=== PATIENT | male | born 1955 | race Two or more races ===

== ENCOUNTER 2017-05-19 10:38 | Inpatient (IN) | payer OTHER ==
[2017-05-19 10:46] VITALS: BMI 23.4
--- NOTE | 2017-05-19 13:03 | HP ---
CIWA Score - CIWA Score Nausea/Vomitin-No Nausea/No Vomiting Muscle Tremors: 4-Moderate,w/Arms Extend Anxiety: 4-Mod. Anxious/Guarded Agitation: 5 Paroxysmal Sweats: 1-Minimal Palms Moist Orientation: 0-Oriented Tacttile Disturbances: 0-None Auditory Disturbances: 0-None Visual Disturbances: 0-None Headache: 0-None Present CIWA-Ar Total Score: 14 Admission ROS S - HPI Chief Complaint: ALCOHOL WITHDRAWAL SX Allergies/Adverse Reactions: Allergies Allergy/AdvReac Type Severity Reaction Status Date / Time No Known Allergies Allergy Verified 05/21/17 12:02 History of Present Illness: 61 Y/O H/MALE WITH A HX OF ALCOHOL DEPENDENCE SEEKING DETOX TX. FIRST TIME HERE. PT IS ON [facility]. Exam Limitations: No Limitations, Intoxication - Ebola screening Have you traveled outside of the country in the last 21 days: No Have you had contact with anyone from an Ebola affected area: No Have you been sick,other than usual withdrawal symptoms: No Do you have a fever: No - Review of Systems Constitutional: Chills, Loss of Appetite, Night Sweats, Changes in sleep EENT: reports: Blurred Vision (WEARS GLASSES), Tearing, Hearing Loss (RIGHT EAR) , Tinnitus, Nose Congestion, Dental Problems (UPPER AND LOWER PARTIAL DENTURES.) Respiratory: reports: No Symptoms reported Cardiac: reports: Lightheadedness, Chest Tightness (WHEN INTOXICATED) GI: reports: Constipated, Diarrhea, Nausea, Poor Fluid Intake, Vomiting, Indigestion, Abdominal cramping : reports: Burning, Dysuria, Other (HX BPH BUT NO CURRENT MED) Musculoskeletal: reports: Back Pain, Joint Pain, Muscle Pain Integumentary: reports: Bruising, Erythema, Other (SWELLING BOTH HANDS-LEFT MORE THAN RIGHT HAND. REPORTS HE FELL 3 DAYS AGO BUT DID NOT GO TO THE ER.) Neuro: reports: Headache, Numbness, Tingling, Tremors, Unsteady Gait, Dizziness Endocrine: reports: No Symptoms Reported Hematology: reports: No Symptoms Reported Psychiatric: reports: Orientated x3, Agitated, Anxious, Depressed Other Systems: Reviewed and Negative Patient History - Patient Medical History Hx Anemia: No Hx Asthma: No Hx Chronic Obstructive Pulmonary Disease (COPD): No Hx Cardiac Disorders: No Hx Hypertension: Yes (LISINOPRIL 10 MG DAILY) Hx Hypercholesterolemia: No HX Cerebrovascular Accident: No Hx Seizures: No Hx Diabetes: No Hx Gastrointestinal Disorders: No Hx Genitourinary Disorders: No Hx Sexually Transmitted Disorders: No Hx Renal Disease (ESRD): No Hx Thyroid Disease: No Hx Human Immunodeficiency Virus (HIV): No (NEGATIVE HX) Hx Hepatitis C: No Hx Depression: Yes Hx Suicide Attempt: No (DENIES S/I) Hx Schizophrenia: No - Patient Surgical History Past Surgical History: Yes Hx Neurologic Surgery: No Hx Cataract Extraction: No Hx Cardiac Surgery: No Hx Lung Surgery: Yes (triple bypass sx in 03/2017) Hx Breast Surgery: No Hx Breast Biopsy: No Hx Abdominal Surgery: No Hx Appendectomy: No Hx Cholecystectomy: No Hx Genitourinary Surgery: No Hx Orthopedic Surgery: No Anesthesia Reaction: No - PPD History Previous Implant?: Yes Documented Results: Negative w/o proof Implanted On Prior R Admission?: No PPD to be Administered?: Yes - Reproductive History Patient is a Female of Child Bearing Age (11 -55 yrs old): No (MALE) - Smoking Cessation Smoking history: Current every day smoker Have you smoked in the past 12 months: Yes Aproximately how many cigarettes per day: 10 Hx Chewing Tobacco Use: No Initiated information on smoking cessation: Yes 'Breaking Loose' booklet given: 05/19/17 - Substance & Tx. History Hx Alcohol Use: Yes (VODKA) Hx Substance Use: Yes (HEROIN) Substance Use Type: Alcohol, Heroin Hx Substance Use Treatment: Yes (CURRENTLY IN [facility]) - Substances Abused Heroin Route: Inhalation Frequency: 1-2 times per week Amount used: 3 bags Age of first use: 17 Date of Last Use: 05/19/17 Alcohol-vodka Route: Oral Frequency: Daily Amount used: 2 pts. Age of first use: 17 Date of Last Use: 05/19/17 Family Disease History - Family Disease History Family History: Unable to Obtain Admission Physical Exam BHS - Physical General Appearance: Yes: Moderate Distress, Alcohol on Breath, Intoxicated, Irritable, Anxious, Other (RESTLESSNESS AND AGITATIONS. INCONTINENT OF URINE SEEN ON CLOTHING.) HEENTM: Yes: EOMI, Normocephalic, JENNIFER, Pharynx Normal Respiratory: Yes: Chest Non-Tender, Lungs Clear, Normal Breath Sounds, No Respiratory Distress Neck: Yes: Supple, Trachea in good position Breast: Yes: Breast Exam Deferred Cardiology: Yes: Regular Rhythm, Regular Rate, S1, S2 Abdominal: Yes: Normal Bowel Sounds, Non Tender, Soft Genitourinary: Yes: Other (N/C) Back: Yes: Within Normal Limits Musculoskeletal: Yes: full range of Motion, Gait Steady Extremities: Yes: Normal Range of Motion, Non-Tender, Swelling (LEFT HAND-- REPORTS FALLING 3 DAYS AGO. WILL SEND PT FOR XRAY LEFT HAND IN A.M TO R/O FX.) Neurological: Yes: engineering design manager II-XII NML intact, Fully Oriented, Alert Integumentary: Yes: Dry, Warm Lymphatic: Yes: Within Normal Limits - Diagnostic (1) Alcohol dependence with uncomplicated withdrawal Current Visit: Yes Status: Acute (2) Swelling of left hand Current Visit: Yes Status: Acute (3) Methadone maintenance therapy patient Current Visit: Yes Status: Chronic Cleared for Admission S - Detox or Rehab [facility] Level of Care: Medically Managed Detox Regimen/Protocol: Librium Urine Drug Screen - Results Drug Screen Negative: No Urine Drug Screen Results: OPI-Opiates, MTD-Methadone
[2017-05-19] MEDS ORDERED: ACETAMINOPHEN 325 MG TABLET (FP) PO PRN (13:19)
[2017-05-19] MEDS ORDERED: LOPERAMIDE HCL 2 MG CAPSULE PO PRN (13:19)
[2017-05-19] MEDS ORDERED: IBUPROFEN 400 MG TABLET (FP) PO PRN (13:19)
[2017-05-19] MEDS ORDERED: NICOTINE POLACRILEX 2 MG GUM BC PRN (13:19)
[2017-05-19] MEDS ORDERED: MAGNESIUM CITRATE 300 ML BOTTLE PO PRN (13:19)
[2017-05-19] MEDS ORDERED: chlordiazePOXIDE HCL 25 MG CAPSULE PO PRN (13:19)
[2017-05-19] MEDS ORDERED: P-EPHED 60MG/TRIPROLIDI 2.5MG TABLET PO PRN (13:19)
[2017-05-19] MEDS ORDERED: MENTHOL/PHENOL 1 EACH UD MM PRN (13:19)
[2017-05-19] MEDS ORDERED: guaiFENesin/D-METHORPHAN HB 10 ML UNIT-DOSE CUPS PO PRN (13:19)
[2017-05-19] MEDS ORDERED: MAGNESIUM HYDROX 2400MG/30ML ORAL SUSPENSION 30 ML CUP PO PRN (13:19)
[2017-05-19] MEDS ORDERED: chlordiazePOXIDE HCL 25 MG CAPSULE PO ONE (14:00)
[2017-05-19] MEDS: NICOTINE 14 MG/24 HOURS TOPICAL PATCH TD SCH (15:01)
--- NOTE | 2017-05-19 15:11 | CONSULT ---
[facility] Psychiatric Consult - Data Date of interview: 05/19/17 Admission source: [facility] Identifying data: First admission to [facility] for this 61 y/o male seeking detox treatment on for alcohol and opioid dependence.Patient is single,a father of one,domiciled,unemployed and supported on SSD benefits. Substance Abuse History: Confirmed by patient in this interview.Details in current [facility] report : Smoking history: Current every day smoker. Have you smoked in the past 12 months: Yes. Aproximately how many cigarettes per day: 10. Hx Chewing Tobacco Use: No. Initiated information on smoking cessation: Yes. - Substance & Tx. History. Hx Alcohol Use: Yes (VODKA). Hx Substance Use : Yes (HEROIN). Substance Use Type: Alcohol, Heroin. Hx Substance Use Treatment: Yes (CURRENTLY IN [facility]). - Substances Abused. Heroin. Route: Inhalation. Frequency: 1-2 times per week. Amount used: 3 bags. Age of first use: 17. Date of Last Use: 05/19/17. Alcohol-vodka. Route: Oral. Frequency: Daily. Amount used: 2 pts. Age of first use: 17. Date of Last Use : 05/19/17 Medical History: Hypertension and recent open heart surgery (triple bypass) at [facility]. Psychiatric History: Patient denies history of psychiatric hospitalizations,OPD care or suicide attempts.Mr Copeland is currently on methadone maintenance (80 mg /day) at [facility]. Physical/Sexual Abuse/Trauma History: No history. Additional Comment: Urine Drug Screen Results: OPI-Opiates, MTD-Methadone.Noted. Mental Status Exam - Mental Status Exam Alert and Oriented to: Time, Place, Person Cognitive Function: Good Patient Appearance: Well Groomed Mood: Nervous, Hopeful Affect: Appropriate, Mood Congruent Patient Behavior: Fatigued, Appropriate, Cooperative Speech Pattern: Clear (bilingual) Voice Loudness: Normal Thought Process: Intact, Goal Oriented Thought Disorder: Not Present Hallucinations: Denies Suicidal Ideation: Denies Homicidal Ideation: Denies Insight/Judgement: Poor Sleep: Poorly, Difficulty falling asleep Appetite: Good Muscle strength/Tone: Normal Gait/Station: Normal Psychiatric Findings - Problem List ([place] 1, 2,3) (1) Alcohol dependence with uncomplicated withdrawal Current Visit: Yes Status: Acute (2) Opioid dependence on agonist therapy Current Visit: Yes Status: Acute (3) Insomnia Current Visit: Yes Status: Acute - Initial Treatment Plan Initial Treatment Plan: Psychoeducation.Sleep hygiene discussed.Detoxification in progress.Ambien 5 mg po hs prn.Patient is made aware of the risk of parasomnias (sleep-walking).Mr Copeland agrees with this careplan.Observation.
[2017-05-19] MEDS: chlordiazePOXIDE HCL 25 MG CAPSULE PO SCH ×2 (16:54→22:04)
[2017-05-19] MEDS ORDERED: MELATONIN 5 MG TABLETS PO PRN (22:00)
[2017-05-19] MEDS: ZOLPIDEM TARTRATE 5 MG TABLET PO PRN (22:04)
[2017-05-19] MEDS: THIAMINE HCL 100 MG TABLET (FP) PO SCH (22:04)
[2017-05-19 23:06] LABS: ALBUMIN 3.1 g/dl (3.4-5.0); ANION GAP 7 (8-16); BLOOD UREA NITROGEN 15 mg/dL (7-18); CALCIUM 8.2 mg/dL (8.5-10.1); CHLORIDE 106 mmol/L (98-107); CO2 28 mmol/L (21-32); CREATININE 0.8 mg/dL (0.7-1.3); GLUCOSE,RANDOM 80 mg/dL (74-106); POTASSIUM 3.7 mmol/L (3.5-5.1); SGOT/AST 32 U/L (15-37); SGPT/ALT 31 U/L (12-78); SODIUM 141 mmol/L (136-145); TOT PROT 6.7 g/dl (6.4-8.2)
[2017-05-19 23:07] LABS: ALK PHOS 111 U/L (45-117)
[2017-05-19 23:10] LABS: URINE APPEARANCE TURBID; URINE BILIRUBIN NEGATIVE (<2.0 mg/dL); URINE COLOR AMBER; URINE GLUCOSE (UA) NEGATIVE (NEGATIVE); URINE KETONE NEGATIVE (NEGATIVE); URINE LEUK ESTERASE NEGATIVE (NEGATIVE); URINE NITRITE NEGATIVE (NEGATIVE); URINE PROTEIN NEGATIVE (NEGATIVE)
[2017-05-19 23:11] LABS: BILIRUBIN,TOTAL < 0.1 mg/dL (0.2-1.0)
[2017-05-19 23:16] LABS: HEMATOCRIT 36.4 % (35.4-49); HEMOGLOBIN 12.4 GM/dL (11.7-16.9); MCH 31.5 pg (25.7-33.7); MEAN CELL VOLUME 92.7 fl (80-96); MEAN PLT VOLUME 8.7 fl (7.5-11.1); PLATELET COUNT 323 K/MM3 (134-434); RBC 3.93 M/mm3 (4.00-5.60); RDW 15.5 % (11.9-15.9); WHITE BLOOD COUNT 6.4 K/mm3 (4.0-10.0)
[2017-05-19 23:29] LABS: SICKLE CELL SCREEN NEGATIVE (NEGATIVE)
[2017-05-20] MEDS: chlordiazePOXIDE HCL 25 MG CAPSULE PO SCH ×4 (04:59→22:15)
[2017-05-20] MEDS: METHADONE HCL 40 MG DISPERSABLE TABLET PO SCH (04:59)
[2017-05-20] MEDS: NICOTINE 14 MG/24 HOURS TOPICAL PATCH TD SCH (10:09)
[2017-05-20] MEDS: LISINOPRIL 10 MG TABLET (FP) PO SCH (10:09)
[2017-05-20] MEDS: PRENATAL VITAMINS W/ FOLIC ACID TABLET (FP) PO SCH (10:09)
--- NOTE | 2017-05-20 10:43 | EKG ---
Test Reason : Blood Pressure : / mmHG Vent. Rate : 068 BPM Atrial Rate : 068 BPM P-R Int : 184 ms QRS Dur : 096 ms QT Int : 456 ms P-R-T Axes : 058 -24 -68 degrees QTc Int : 484 ms NORMAL SINUS RHYTHM PROLONGED QT ABNORMAL ECG NO PREVIOUS ECGS AVAILABLE Confirmed by MD Issac, Hammad ([id number]) on 05/20/2017 10:42:52 AM Referred By: Confirmed By:Hammad Davenport MD
--- NOTE | 2017-05-20 11:59 | PN ---
[facility] CIWA - CIWA Score Nausea/Vomitin-No Nausea/No Vomiting Muscle Tremors: 3 Anxiety: 4-Mod. Anxious/Guarded Agitation: 3 Paroxysmal Sweats: 3 Orientation: 0-Oriented Tacttile Disturbances: 2-Mild Itch/Numbness/Burn Auditory Disturbances: 2-Mild Harshness/Frighten Visual Disturbances: 0-None Headache: 0-None Present CIWA-Ar Total Score: 17 [facility] Progress Note (SOAP) Subjective: Anxious, Constipation, Body Aches, Interrupted Sleep. Patient reports pain in Left hand. Patient reports that he fell on his Left Hand approx. 2 days prior to admission to etox. Objective: PATIENT A & O X 3, OBSERVED AMBULATING ON UNIT. NO ACUTE DISTRESS. SWELLING NOTED IN LEFT HAND. NO ERYTHEMA, WOUNDS OR UNUSUAL DISCHARGE NOTED. 05/20/17 11:56 Vital Signs Temperature 97.1 F L 05/20/17 09:18 Pulse Rate 67 05/20/17 11:00 Respiratory Rate 18 05/20/17 11:00 Blood Pressure 132/79 05/20/17 09:18 O2 Sat by Pulse Oximetry (%) Laboratory Tests 05/19/17 05/19/17 05/19/17 14:00 14:00 15:00 WBC 6.4 RBC 3.93 L Hgb 12.4 Hct 36.4 MCV 92.7 MCH 31.5 MCHC 34.0 RDW 15.5 Plt Count 323 MPV 8.7 Sickle Cell Screen Negative Sodium 141 Potassium 3.7 Chloride 106 Carbon Dioxide 28 Anion Gap 7 L BUN 15 Creatinine 0.8 Creat Clearance w eGFR > 60 Random Glucose 80 Calcium 8.2 L Total Bilirubin < 0.1 L AST 32 ALT 31 Alkaline Phosphatase 111 Total Protein 6.7 Albumin 3.1 L Urine Color Stephie Urine Appearance Turbid Urine pH 5.0 Ur Specific [place] 1.019 Urine Protein Negative Urine Glucose (UA) Negative Urine Ketones Negative Urine Blood Negative Urine Nitrite Negative Urine Bilirubin Negative Urine Urobilinogen 2.0 Ur Leukocyte Esterase Negative LABS NOTED. RPR RESULT PENDING. PATIENT PREVIOUSLY SCHEDULED TO HAVE X-RAY OF LEFT HAND/WRIST, RESULTS PENDING. 05/20/17 11:59 Assessment: 05/20/17 11:58 WITHDRAWAL SYMPTOMS. Plan: CONTINUE DETOX. INCREASE DAILY PO FLUID INTAKE. PRN MOM FOR CONSTIPATION.
[2017-05-20] MEDS ORDERED: NAPROXEN 375 MG TABLET (FP) PO ONE (16:45)
[2017-05-20] MEDS: MAG HYDROX/AL HYDROX/SIMETH 30 ML UNIT-DOSE CUP PO PRN ×2 (17:35→23:57)
[2017-05-20] MEDS: ZOLPIDEM TARTRATE 5 MG TABLET PO PRN (22:15)
[2017-05-20] MEDS: THIAMINE HCL 100 MG TABLET (FP) PO SCH (22:15)
[2017-05-21] MEDS: chlordiazePOXIDE HCL 25 MG CAPSULE PO SCH ×2 (06:30→10:21)
[2017-05-21] MEDS: METHADONE HCL 40 MG DISPERSABLE TABLET PO SCH (06:30)
[2017-05-21 09:34] VITALS: BP 130/83; PULSE 73; TEMP 96.6
[2017-05-21] MEDS: NICOTINE 14 MG/24 HOURS TOPICAL PATCH TD SCH (10:21)
[2017-05-21] MEDS: LISINOPRIL 10 MG TABLET (FP) PO SCH (10:21)
[2017-05-21] MEDS: PRENATAL VITAMINS W/ FOLIC ACID TABLET (FP) PO SCH (10:21)
[2017-05-21] MEDS: NAPROXEN 375 MG TABLET (FP) PO SCH ×2 (10:21→23:09)
--- NOTE | 2017-05-21 10:30 | PN ---
[facility] CIWA - CIWA Score Nausea/Vomitin-No Nausea/No Vomiting Muscle Tremors: None Anxiety: 4-Mod. Anxious/Guarded Agitation: 2 Paroxysmal Sweats: 2 Orientation: 0-Oriented Tacttile Disturbances: 2-Mild Itch/Numbness/Burn Auditory Disturbances: 0-None Visual Disturbances: 3-Moderate Sensitivity Headache: 0-None Present CIWA-Ar Total Score: 13 [facility] Progress Note (SOAP) Subjective: Stomach Cramping, Interrupted Sleep, Anxious, Diarrhea. Patient reporting abdominal pain (generalized, intermittent) X approx. 4 days. See Following Progress Note. Objective: PATIENT A & O X 3, OBSERVED AMBULATING ON UNIT. NO ACUTE DISTRESS. DISCOMFORT NOTED ON PALPATION OF ALL QUADRANTS OF ABDOMEN, BILATERAL BUT MORE SO ON RIGHT SIDE. BOWEL SOUNDS NORMOACTIVE IN ALL FOUR QUADRANTS. 05/21/17 10:27 Vital Signs Temperature 96.6 F L 05/21/17 09:33 Pulse Rate 73 05/21/17 09:33 Respiratory Rate 18 05/21/17 09:33 Blood Pressure 130/83 05/21/17 09:33 O2 Sat by Pulse Oximetry (%) Laboratory Tests 05/19/17 05/19/17 05/19/17 14:00 14:00 14:00 WBC 6.4 RBC 3.93 L Hgb 12.4 Hct 36.4 MCV 92.7 MCH 31.5 MCHC 34.0 RDW 15.5 Plt Count 323 MPV 8.7 Sickle Cell Screen Negative Sodium 141 Potassium 3.7 Chloride 106 Carbon Dioxide 28 Anion Gap 7 L BUN 15 Creatinine 0.8 Creat Clearance w eGFR > 60 Random Glucose 80 Calcium 8.2 L Total Bilirubin < 0.1 L AST 32 ALT 31 Alkaline Phosphatase 111 Total Protein 6.7 Albumin 3.1 L Urine Color Urine Appearance Urine pH Ur Specific [place] Urine Protein Urine Glucose (UA) Urine Ketones Urine Blood Urine Nitrite Urine Bilirubin Urine Urobilinogen Ur Leukocyte Esterase RPR Titer Nonreactive 05/19/17 15:00 WBC RBC Hgb Hct MCV MCH MCHC RDW Plt Count MPV Sickle Cell Screen Sodium Potassium Chloride Carbon Dioxide Anion Gap BUN Creatinine Creat Clearance w eGFR Random Glucose Calcium Total Bilirubin AST ALT Alkaline Phosphatase Total Protein Albumin Urine Color St[place]ie Urine Appearance Turbid Urine pH 5.0 Ur Specific [place] 1.019 Urine Protein Negative Urine Glucose (UA) Negative Urine Ketones Negative Urine Blood Negative Urine Nitrite Negative Urine Bilirubin Negative Urine Urobilinogen 2.0 Ur Leukocyte Esterase Negative RPR Titer LABS NOTED. RESULT OF X-RAY OF LEFT HAND PENDING. 05/21/17 10:30 Assessment: 05/21/17 10:28 WITHDRAWAL SYMPTOMS. Plan: CONTINUE DETOX. PATIENT TO BE SENT TO [facility] ER FOR FURTHER EVALUATION OF ABDOMINAL PAIN. SEE FOLLOWING PROGRESS NOTE.
--- NOTE | 2017-05-21 10:44 | PN ---
[facility] Progress Note Note: Patient reports abdominal pain X approx. 4 days. According to patient, pain is sharp, intermittent, 7/10 on pain scale, and generalized throughout all four quadrants of abdomen, although more severe on right side. Patient reports that he had cardiac surgery approx. 2 month ago and that abdominal discomfort occurred for a few days after that surgery, but then subsided at that time. Generalized tenderness upon palpation of abdomen in all four quadrants noted, more so on right upper and lower quadrants. Bowel Sounds Normoactive in all four quadrants. Patient reports diarrhea, but that bowel movements do not relieve pain when it does occur. Patient denies Chest Pain and N/V. History of Cholecystectomy approx. 2 years ago and Triple Cardiac Bypass approx. 2 months ago. Report given to LUCIANO Donnelly at [facility]. Patient to be taken via ambulance to [facility] for further evaluation. Bonifacio Tavares NP
[2017-05-21] MEDS: chlordiazePOXIDE 5 MG CAPSULE PO SCH ×2 (18:03→23:08)
[2017-05-21] MEDS ORDERED: NITROGLYCERIN SUBLINGUAL 1/150 0.4 MG TAB SL PRN (19:57)
[2017-05-21] MEDS ORDERED: ACETAMINOPHEN 325 MG TABLET (FP) PO PRN (19:58)
[2017-05-21] MEDS ORDERED: PANTOPRAZOLE 40 MG TABLET (FP) PO SCH (20:15)
--- NOTE | 2017-05-21 20:32 | MSN ---
Admitting History and Physical - Admission Chief Complaint: Chest pain History of Present Illness: 61 yr old male s/p triple bypass 2 months prior presents to ED from [facility] ( admitted for alcohol detox) with cc of chest pain of 4 days duration and epigastric pain of 4 days duration. Patient describes chest pain as sub- sternal tightness without radiation. The pain is episodic with each episode lasting about 20 mins. Tightness is exacerbated by exertion although the pain has awakened him at night and is relieved by rest and aspirin. The chest pain is not associated with food intake but is associated with SOB. The patient also describes epigastric pain that is sharp and radiates horizontally across his right and left upper quadrant. Pain is exacerbated by drinking alcohol and is associated with 2/3 days of nausea and diarrhea with small amounts of red blood. Patient also fell two days ago and injured his left wrist. He denies lightheadedness or loss of consciousness with the fall. He complains of pain in the wrist without numbness or loss of sensation. PastMedHx: HTN, alcohol dependence, opioid dependence Surgx: CABG (2 months ago), Pancreatic mass removed (1 year ago), Cholecystectomy Social: last used alcohol 4 days ago; last snorted heroin 4 days ago; smokes 10 cigarettes/day NKDA History Source: Patient Limitations to Obtaining History: No Limitations - Past Medical History Cardiovascular: Yes: HTN - Past Surgical History Past Surgical History: Yes: Bypass, Cholecystectomy Additional Past Surgical History: Pancreatic mass removal - Smoking History Smoking history: Current every day smoker Have you smoked in the past 12 months: Yes Aproximately how many cigarettes per day: 10 - Alcohol/Substance Use Hx Alcohol Use: Yes (VODKA) History of Substance Use: reports: Heroin Home Medications - Allergies Allergies/Adverse Reactions: Allergies Allergy/AdvReac Type Severity Reaction Status Date / Time No Known Allergies Allergy Verified 05/21/17 12:02 - Home Medications Home Medications: Ambulatory Orders Lisinopril [Zestril] 10 mg PO DAILY 05/19/17 Review of Systems - Review of Systems Constitutional: reports: Loss of Appetite Cardiovascular: reports: Chest Pain, Shortness of Breath Respiratory: reports: Cough Genitourinary: reports: Other (Hestinancy) Musculoskeletal: reports: Other (left wrist pain) Physical Examination Vital Signs: Vital Signs Temperature 96.6 F L 05/21/17 09:33 Pulse Rate 73 05/21/17 09:33 Respiratory Rate 18 05/21/17 09:33 Blood Pressure 130/83 05/21/17 09:33 O2 Sat by Pulse Oximetry (%) Findings/Remarks: GENERAL: Well-developed male in no acute distress resting comfortably on the stretcher HEAD: Normocephalic, atraumatic EYES: Conjunctiva clear, no palor or jaundice NECK: Supple, trachea midline CARDIOVASCULAR: Healed sternal scar w/o erythema, No JVD, Normal S1/S2 w/o rubs or gallop LUNGS: Clear to auscultation b/l, no wheezes or rales ABDOMEN:Healed scar below umbilicus, normoactive bowel sounds, soft, epigastric tenderness with deep palpation, no rebound or guarding, no organomeglay, small hernia to left of midline below umbilicus, no suprapubic tenderness EXTREMITIES: Left wrist splinted, 2 + peripheral pulses UE/LE b/l, sensation grossly intact NEURO: Normal speech, ambulates without difficultly Labs: CBC, BMP 05/19/17 14:00 05/19/17 14:00 Imaging - Results Cat Scan: Report Reviewed (Soft tissue stranding in pancreatic tail, Small left inguinal hernia containing fat, Small umbilical hernia containing fat, small b/ l basilar lower lung opacities) EKG: Image Reviewed (Sinus bradycardia with T-wave inversions similar to prior EKG (05/19)) Assessment/Plan 61 yr old male s/p CABG (2 months ago) and history of alcohol and opioid dependence presents from [facility] with 4 days of chest pain and epigastric pain. #Chest pain-Most likely cardiac -Repeat EKG -Troponins Q6H, next at mid-night -At 1400-0.11 -At 1800-0.10 -Sublingual nitro prn, ASA, Statin -Consult cardiology #Epigastric pain- Likely secondary to gastritis; not likely pancreatitis, gastric ulcer -Protonix 40 mg QD #Left wrist pain -Review radiology report -Control pain, morphine -Consult orthopedics #Alcohol dependence/withdrawal -Continue librium protocol started at [facility] -PO thiamine, folate #Opioid dependence -Continue Methadone 80mg #HTN -controlled -Continue lisinopril 10 mg #FEN -Encourage oral intake, cardiac diet #Dispo -Obs telemetry
[2017-05-21] MEDS ORDERED: ATORVASTATIN CA 20 MG TABLET (FP) PO SCH (22:00)
[2017-05-21] MEDS: THIAMINE HCL 100 MG TABLET (FP) PO SCH (23:09)
[2017-05-22] MEDS ORDERED: ASPIRIN COATED 81 MG TABLET.EC PO SCH (10:00)
[2017-05-22] MEDS ORDERED: FOLIC ACID 1 MG TABLET (FP) PO SCH (10:00)
[2017-05-22] MEDS ORDERED: chlordiazePOXIDE HCL 10 MG CAPSULE PO SCH (17:00)
== END 2017-05-21 23:59 | disposition short-term general hospital (02) | DRG 897 ==
LOC: YASAS 10:38 → Y3N 13:23 → UNDOADMIN 13:23 → Y3N 05-20 11:04
PROVIDERS: ADMIT Internal Medicine; ATTEND Internal Medicine
PROC: HZ2ZZZZ Detoxification Services for Substance Abuse Treatment (ICD-10-PCS; principal; 2017-05-19)
DX: F19.230 Other psychoactive substance dependence with withdrawal, uncomplicated (principal); F11.20 Opioid dependence, uncomplicated; F10.230 Alcohol dependence with withdrawal, uncomplicated; F17.210 Nicotine dependence, cigarettes, uncomplicated; G47.00 Insomnia, unspecified; Z95.1 Presence of aortocoronary bypass graft; I10 Essential (primary) hypertension; F32.9 Major depressive disorder, single episode, unspecified; M25.532 Pain in left wrist; M79.89 Other specified soft tissue disorders; R74.8 Abnormal levels of other serum enzymes; Z90.49 Acquired absence of other specified parts of digestive tract
CPT/HCPCS: 36415; 73110-TC-LR-FY; 73130-TC-LR-FY; 80053; 81003; 85027; 85660; 86593; 93005; 93010

== ENCOUNTER 2017-05-23 19:43 | Inpatient (IN) | payer OTHER ==
[2017-05-23 21:43] VITALS: BMI 25.1
--- NOTE | 2017-05-23 22:10 | HP ---
Admission ROS [facility] Chief Complaint: Rehab services Allergies/Adverse Reactions: Allergies Allergy/AdvReac Type Severity Reaction Status Date / Time No Known Allergies Allergy Verified 05/23/17 22:36 History of Present Illness: 61 yo male with hx of alcohol dependence is here for rehab, patient is transferred from [facility] after evaluation for abdominal pain and chest pain - 05/23/17. Patient is link to out patient [email or web address] currently on methadone 80mg, last medicated today. PMHX: HTN, Hep C and treated, anxiety. Denies suicidal / homicidal ideation or suicide attempts. Longest period of sobriety 13 years. Exam Limitations: No Limitations - Ebola screening Have you traveled outside of the country in the last 21 days: No Have you had contact with anyone from an Ebola affected area: No Have you been sick,other than usual withdrawal symptoms: No Do you have a fever: No - Review of Systems Constitutional: Changes in sleep EENT: reports: No Symptoms Reported Respiratory: reports: No Symptoms reported Cardiac: reports: Lightheadedness GI: reports: Abdominal cramping Musculoskeletal: reports: Back Pain Integumentary: reports: Other (hand swelling) Neuro: reports: Weakness Endocrine: reports: No Symptoms Reported Hematology: reports: No Symptoms Reported Psychiatric: reports: Orientated x3, Depressed Other Systems: Reviewed and Negative Patient History - Patient Medical History Hx Anemia: No Hx Asthma: No Hx Chronic Obstructive Pulmonary Disease (COPD): No Hx Cancer: No Hx Cardiac Disorders: No Hx Hypertension: Yes (LISINOPRIL 10 MG DAILY) Hx Hypercholesterolemia: No Hx Pacemaker: No HX Cerebrovascular Accident: No Hx Seizures: No Hx Dementia: No Hx Diabetes: No Hx Gastrointestinal Disorders: No Hx Liver Disease: No Hx Genitourinary Disorders: No Hx Sexually Transmitted Disorders: No Hx Renal Disease (ESRD): No Hx Thyroid Disease: No Hx Human Immunodeficiency Virus (HIV): No (NEGATIVE HX) Hx Hepatitis C: No Hx Depression: Yes Hx Suicide Attempt: No (DENIES S/I) Hx Schizophrenia: No - Patient Surgical History Past Surgical History: Yes Hx Neurologic Surgery: No Hx Cataract Extraction: No Hx Cardiac Surgery: No Hx Lung Surgery: Yes (triple bypass sx in 03/2017) Hx Breast Surgery: No Hx Breast Biopsy: No Hx Abdominal Surgery: No Hx Appendectomy: No Hx Cholecystectomy: Yes Hx Genitourinary Surgery: No Hx Section: No Hx Orthopedic Surgery: No Anesthesia Reaction: No - PPD History Previous Implant?: Yes Documented Results: Negative w/proof Date: 05/21/17 PPD to be Administered?: No - Reproductive History Patient is a Female of Child Bearing Age (11 -55 yrs old): No - Smoking Cessation Smoking history: Current every day smoker Have you smoked in the past 12 months: Yes Aproximately how many cigarettes per day: 10 Hx Chewing Tobacco Use: No Initiated information on smoking cessation: Yes 'Breaking Loose' booklet given: 05/23/17 Family Disease History - Family Disease History Family History: Unable to Obtain Admission Physical Exam BHS - Vital Signs Vital Signs: Vital Signs - 24 hr 05/23/17 21:41 Temperature 97.8 F Pulse Rate 70 Respiratory 18 Rate Blood Pressure 123/81 - Physical General Appearance: Yes: Appropriately Dressed, Anxious HEENTM: Yes: EOMI, Hearing grossly Normal, Normal ENT Inspection, Normocephalic , Normal Voice, JENNIFER, Pharynx Normal, Tm's normal Respiratory: Yes: Chest Non-Tender, Lungs Clear, Normal Breath Sounds, Respiratory Distress Neck: Yes: Within Normal Limits Breast: Yes: Breast Exam Deferred Cardiology: Yes: Regular Rhythm, Regular Rate Abdominal: Yes: Normal Bowel Sounds, Non Tender, Flat, Soft Genitourinary: Yes: Within Normal Limits Back: Yes: Normal Inspection Musculoskeletal: Yes: full range of Motion, Gait Steady, Pelvis Stable, Other ( mild unsteady gait, as per patient he bormally uses a walker to ambulate or cane ) Extremities: Yes: Normal Capillary Refill, Normal Inspection, Normal Range of Motion Neurological: Yes: ground hand II-XII NML intact, Fully Oriented, Alert, Motor Strength 5/5, Depressed Affect Integumentary: Yes: Other (swelling on both hands) Lymphatic: Yes: Within Normal Limits - Diagnostic (1) Alcohol dependence Current Visit: Yes Status: Acute Qualifiers: Substance use status: uncomplicated Qualified Code(s): F10.20 - Alcohol dependence, uncomplicated (2) Use of cane as ambulatory aid Current Visit: Yes Status: Acute (3) Insomnia Current Visit: Yes Status: Acute Qualifiers: Insomnia type: unspecified Qualified Code(s): G47.00 - Insomnia, unspecified (4) Swelling of left hand Current Visit: Yes Status: Acute (5) Methadone maintenance therapy patient Current Visit: Yes Status: Chronic (6) Hypertension Current Visit: Yes Status: Chronic Qualifiers: Hypertension type: essential hypertension Qualified Code(s): I10 - Essential (primary) hypertension BHS Breath Alcohol Content Breath Alcohol Content: 0 Urine Drug Screen - Results Drug Screen Negative: No Urine Drug Screen Results: BZO-Benzodiazepines, MTD-Methadone Inpatient Rehab Admission - Initial Determination Are CD services needed?: Yes Free of communicable disease: Yes - Rehab Admission Criteria Previous failed treatment: Yes Poor recovery environment: Yes Comorbidities: Yes Lacks judgement: Yes Patient is meeting Inpatient Rehab admission criteria:: Yes
[2017-05-23] MEDS ORDERED: P-EPHED 60MG/TRIPROLIDI 2.5MG TABLET PO PRN (22:11)
[2017-05-23] MEDS ORDERED: MAGNESIUM HYDROX 2400MG/30ML ORAL SUSPENSION 30 ML CUP PO PRN (22:11)
[2017-05-23] MEDS ORDERED: ACETAMINOPHEN 325 MG TABLET (FP) PO PRN (22:11)
[2017-05-23] MEDS ORDERED: guaiFENesin/D-METHORPHAN HB 10 ML UNIT-DOSE CUPS PO PRN (22:11)
[2017-05-23] MEDS ORDERED: IBUPROFEN 400 MG TABLET (FP) PO PRN (22:11)
[2017-05-23] MEDS ORDERED: LOPERAMIDE HCL 2 MG CAPSULE PO PRN (22:11)
[2017-05-23] MEDS ORDERED: MAGNESIUM CITRATE 300 ML BOTTLE PO PRN (22:11)
[2017-05-23] MEDS ORDERED: MENTHOL/PHENOL 1 EACH UD MM PRN (22:11)
[2017-05-23] MEDS ORDERED: NICOTINE POLACRILEX 2 MG GUM BUC PRN (22:12)
[2017-05-24] MEDS ORDERED: METHADONE HCL 10 MG TABLET PO SCH (06:00)
[2017-05-24] MEDS: METHADONE HCL 40 MG DISPERSABLE TABLET PO SCH (06:16)
[2017-05-24] MEDS: NICOTINE 14 MG/24 HOURS TOPICAL PATCH TD SCH (10:10)
[2017-05-24] MEDS: LISINOPRIL 10 MG TABLET (FP) PO SCH (10:10)
[2017-05-24] MEDS: PRENATAL VITAMINS W/ FOLIC ACID TABLET (FP) PO SCH (10:10)
[2017-05-24] MEDS: hydrOXYzine PAMOATE 25 MG CAPSULE (FP) PO PRN (21:43)
[2017-05-24] MEDS: MELATONIN 5 MG TABLETS PO PRN (21:43)
[2017-05-24] MEDS: THIAMINE HCL 100 MG TABLET (FP) PO SCH (21:43)
[2017-05-24] MEDS: MAG HYDROX/AL HYDROX/SIMETH 30 ML UNIT-DOSE CUP PO PRN (21:44)
[2017-05-25] MEDS: METHADONE HCL 40 MG DISPERSABLE TABLET PO SCH (06:13)
[2017-05-25] MEDS: LISINOPRIL 10 MG TABLET (FP) PO SCH (09:57)
[2017-05-25] MEDS: PRENATAL VITAMINS W/ FOLIC ACID TABLET (FP) PO SCH (09:57)
[2017-05-25] MEDS: NICOTINE 14 MG/24 HOURS TOPICAL PATCH TD SCH (09:57)
[2017-05-25] MEDS: THIAMINE HCL 100 MG TABLET (FP) PO SCH (21:26)
[2017-05-25] MEDS: MELATONIN 5 MG TABLETS PO PRN (21:26)
[2017-05-25] MEDS: hydrOXYzine PAMOATE 25 MG CAPSULE (FP) PO PRN (21:27)
[2017-05-26] MEDS: METHADONE HCL 40 MG DISPERSABLE TABLET PO SCH (06:27)
--- NOTE | 2017-05-26 07:20 | HP ---
Psychiatrist Admission - Data Date of interview: 05/26/17 Admission source: [place]oreto/Janell(05/19/17-05/21/17) Identifying data: This is the first [facility] admission for this 61 years old single male, father of a 31 years old daughter, unemployed on SSD, living in a senior citizen fpc Medical History: Significant for hypertension, history of treatment for hepatitis C, Gallbladder surgery and recent open heart surgery (triple bypass) at [facility]. Patient is on methadone 80 mg/day. Smokes 10 cigarettes daily Psychiatric History: Patient denies history of previous psychiatric treatment Physical/Sexual Abuse/Trauma History: Denies history of emotional, physical or sexual abuse as well as DV relationship Additional Comment: Patient was previously admitted to detox on 05/19/17 and transferred to [facility] for evaluation of chest and abdominal pain. Reports history of 4-5 previous misdemeanor arrests over 10 years ago Vital Signs: Vital Signs - 24 hr 05/25/17 05/26/17 05/26/17 10:00 00:30 03:30 Pulse Rate 84 Respiratory 18 Rate Blood Pressure 109/61 Allergies/Adverse Reactions: Allergies Allergy/AdvReac Type Severity Reaction Status Date / Time No Known Allergies Allergy Verified 05/23/17 22:36 Date of last physical exam: 05/23/17 Concur with the findings of this exam: Yes - Substance Abuse/Tx History Hx Alcohol Use: Yes Hx Substance Use: Yes Substance Use Type: Alcohol (Started drinking alcohol at age 17, consumes 2 pints of vodka daily. Last drank on 05/19/17), Heroin (Started using heroin at age 17, consumes 3 bags daily. Last used on 05/19/17. ) Hx Substance Use Treatment: Yes (Currently attends [facility]; one previous recent inpt detox @ [facility]) Mental Status Exam - Mental Status Exam Alert and Oriented to: Time, Place, Person Cognitive Function: Fair Patient Appearance: Well Groomed Mood: Hopeful, Euthymic Affect: Normal Range Patient Behavior: Cooperative Speech Pattern: Clear Voice Loudness: Normal Thought Process: Intact, Goal Oriented Thought Disorder: Not Present Hallucinations: Denies Suicidal Ideation: Denies Homicidal Ideation: Denies Insight/Judgement: Fair Sleep: Poorly Appetite: Fair Muscle strength/Tone: Normal Gait/Station: Normal Psychiatric Findings - Problem List (Criders 1, 2,3) (1) Substance-induced sleep disorder Current Visit: Yes Status: Acute (2) Alcohol dependence Current Visit: Yes Status: Acute Qualifiers: Substance use status: uncomplicated Qualified Code(s): F10.20 - Alcohol dependence, uncomplicated (3) Opioid dependence on agonist therapy Current Visit: No Status: Chronic (4) Nicotine dependence Current Visit: Yes Status: Chronic (5) Hypertension Current Visit: Yes Status: Chronic Qualifiers: Hypertension type: essential hypertension Qualified Code(s): I10 - Essential (primary) hypertension (6) S/P triple vessel bypass Current Visit: Yes Status: Chronic - Initial Treatment Plan Initial Treatment Plan: 1) Start Belsomra 10 mg po HS prn for insomnia. 2) Monitor progress
[2017-05-26] MEDS: NICOTINE 14 MG/24 HOURS TOPICAL PATCH TD SCH (10:14)
[2017-05-26] MEDS: LISINOPRIL 10 MG TABLET (FP) PO SCH (10:14)
[2017-05-26] MEDS: PRENATAL VITAMINS W/ FOLIC ACID TABLET (FP) PO SCH (10:14)
[2017-05-26] MEDS: MELATONIN 5 MG TABLETS PO PRN (21:26)
[2017-05-26] MEDS: hydrOXYzine PAMOATE 25 MG CAPSULE (FP) PO PRN (21:26)
[2017-05-26] MEDS: THIAMINE HCL 100 MG TABLET (FP) PO SCH (21:26)
[2017-05-26] MEDS ORDERED: SUVOREXANT 10 MG TABLET PO PRN (22:00)
[2017-05-27] MEDS: METHADONE HCL 40 MG DISPERSABLE TABLET PO SCH (06:20)
[2017-05-27] MEDS: PRENATAL VITAMINS W/ FOLIC ACID TABLET (FP) PO SCH (10:05)
[2017-05-27] MEDS: LISINOPRIL 10 MG TABLET (FP) PO SCH (10:05)
[2017-05-27] MEDS: NICOTINE 14 MG/24 HOURS TOPICAL PATCH TD SCH (10:05)
--- NOTE | 2017-05-27 10:46 | PN ---
Psychiatric Progress Note Vital Signs: Vital Signs Period Temp Pulse Resp BP Sys/Cooper Pulse Ox Last 24 Hr 97.7 F 77 18-18 110/71 Date of Session: 05/27/17 Chief Complaint:: Insomnia HPI: Patient addressing Alcohol Dependence comorbid with Opioid Dependence, Nicotine Dependence and Substance-Induced Slee Disorder ROS: HTN, S/P Triple bypass Current Medications: Active Medications Generic Name Dose Route Start Last Admin Trade Name Freq PRN Reason Stop Dose Admin Acetaminophen 650 mg 05/23/17 22:11 Tylenol - PO Q4H PRN FEVER Al Hydroxide/Mg Hydroxide 30 ml 05/23/17 22:11 05/24/17 21:44 Mylanta Oral Suspension - PO 30 ml Q6H PRN Administration DYSPEPSIA Eucalyptus/Menthol/Phenol/Sorbitol 1 each 05/23/17 22:11 Cepastat Lozenge - MM Q4H PRN SORE THROAT Guaifenesin 10 ml 05/23/17 22:11 Robitussin Dm - PO Q6H PRN COUGH Hydroxyzine Pamoate 25 mg 05/23/17 22:11 05/26/17 21:26 Vistaril - PO 25 mg Q4H PRN Administration AGITATION Ibuprofen 400 mg 05/23/17 22:11 05/25/17 14:31 Motrin - PO 400 mg Q6H PRN Administration Pain level 4-6 Lisinopril 10 mg 05/24/17 10:00 05/27/17 10:05 Prinivil PO 10 mg DAILY ROSA M Administration Loperamide HCl 4 mg 05/23/17 22:11 Imodium - PO Q6H PRN DIARRHEA Magnesium Citrate 300 ml 05/23/17 22:11 Citroma - PO Q48H PRN CONSTIPATION Magnesium Hydroxide 30 ml 05/23/17 22:11 Milk Of Magnesia - PO DAILY PRN CONSTIPATION Melatonin 5 mg 05/23/17 22:00 05/26/17 21:26 Melatonin PO 5 mg HS PRN Administration INSOMNIA Methadone HCl 80 mg 05/24/17 06:00 05/27/17 06:20 Dolophine - PO 80 mg DAILY@0600 ROSA M Administration Nicotine 14 mg 05/24/17 10:00 05/27/17 10:05 Nicoderm Patch - TD 14 mg DAILY ROSA M Administration Nicotine Polacrilex 2 mg 05/23/17 22:12 Nicorette Gum - BUC Q2H PRN NICOTINE REPLACEMENT RX Multivit/Folic Acid/Iron 1 tab 05/24/17 10:00 05/27/17 10:05 Vitamins (Sjr) - PO 1 tab DAILY ROSA M Administration Pseudoephedrine/Triprolidine 1 combo 05/23/17 22:11 Actifed - PO TID PRN NASAL CONGESTION Suvorexant 10 mg 05/26/17 22:00 Belsomra PO 05/29/17 21:59 HS PRN INSOMNIA Thiamine HCl 100 mg 05/24/17 22:00 05/26/17 21:26 Vitamin B1 - PO 100 mg HS ROSA M Administration Medication(s) Change(s): Increase Belsomra dosage to 15 mg po HS prn for insomnia Current Side Effect: No Lab tests ordered: Yes Lab tests reviewed: Yes Provider note:: Patient reports experiencing difficulty to sleep. Told rfp writer that he slept poorly despite taking Belsomra 10 mg at bedtime last night. Requested that medication dosage be increased Total face to face time:: 15 Mental Status Exam - Mental Status Exam Alert and Oriented to: Time, Place, Person Cognitive Function: Fair Patient Appearance: Well Groomed Mood: Hopeful, Euthymic Affect: Appropriate Patient Behavior: Cooperative Speech Pattern: Clear Voice Loudness: Normal Thought Process: Intact, Goal Oriented Thought Disorder: Not Present Hallucinations: Denies Suicidal Ideation: Denies Homicidal Ideation: Denies Insight/Judgement: Fair Sleep: Poorly Appetite: Good Muscle strength/Tone: Normal Gait/Station: Normal Psychiatric Treatment Plan - Problem List (1) Substance-induced sleep disorder Current Visit: Yes (2) Alcohol dependence Current Visit: Yes Qualifiers: Substance use status: uncomplicated Qualified Code(s): F10.20 - Alcohol dependence, uncomplicated (3) Opioid dependence on agonist therapy Current Visit: No (4) Nicotine dependence Current Visit: Yes (5) Hypertension Current Visit: Yes Qualifiers: Hypertension type: essential hypertension Qualified Code(s): I10 - Essential (primary) hypertension (6) S/P triple vessel bypass Current Visit: Yes Initial treatment plan: 1) Discontinue Belsomra as currently ordered. 2) Start Belsomra 15 mg po HS prn for insomnia. 3) Monitor progress
[2017-05-27] MEDS ORDERED: SUVOREXANT 15 MG TABLET PO PRN (22:00)
[2017-05-27] MEDS: THIAMINE HCL 100 MG TABLET (FP) PO SCH (22:33)
[2017-05-28] MEDS: METHADONE HCL 40 MG DISPERSABLE TABLET PO SCH (05:58)
[2017-05-28] MEDS: PRENATAL VITAMINS W/ FOLIC ACID TABLET (FP) PO SCH (10:21)
[2017-05-28] MEDS: LISINOPRIL 10 MG TABLET (FP) PO SCH (10:21)
[2017-05-28] MEDS: NICOTINE 14 MG/24 HOURS TOPICAL PATCH TD SCH (10:21)
--- NOTE | 2017-05-28 14:56 | PN ---
Psychiatric Progress Note Vital Signs: Vital Signs Period Temp Pulse Resp BP Sys/Cooper Pulse Ox Last 24 Hr 97.9 F 76-78 18-20 102-108/65-81 Date of Session: 05/28/17 Chief Complaint:: Insomnia HPI: Patient addressing Alcohol Dependence comorbid with Opioid Dependence, Nicotine Dependence and Substance-Induced Slee Disorder ROS: HTN, S/P Triple bypass Current Medications: Active Medications Generic Name Dose Route Start Last Admin Trade Name Freq PRN Reason Stop Dose Admin Acetaminophen 650 mg 05/23/17 22:11 Tylenol - PO Q4H PRN FEVER Al Hydroxide/Mg Hydroxide 30 ml 05/23/17 22:11 05/24/17 21:44 Mylanta Oral Suspension - PO 30 ml Q6H PRN Administration DYSPEPSIA Eucalyptus/Menthol/Phenol/Sorbitol 1 each 05/23/17 22:11 Cepastat Lozenge - MM Q4H PRN SORE THROAT Guaifenesin 10 ml 05/23/17 22:11 Robitussin Dm - PO Q6H PRN COUGH Hydroxyzine Pamoate 25 mg 05/23/17 22:11 05/26/17 21:26 Vistaril - PO 25 mg Q4H PRN Administration AGITATION Ibuprofen 400 mg 05/23/17 22:11 05/25/17 14:31 Motrin - PO 400 mg Q6H PRN Administration Pain level 4-6 Lisinopril 10 mg 05/24/17 10:00 05/28/17 10:21 Prinivil PO 10 mg DAILY ROSA M Administration Loperamide HCl 4 mg 05/23/17 22:11 Imodium - PO Q6H PRN DIARRHEA Magnesium Citrate 300 ml 05/23/17 22:11 Citroma - PO Q48H PRN CONSTIPATION Magnesium Hydroxide 30 ml 05/23/17 22:11 05/27/17 21:40 Milk Of Magnesia - PO 30 ml DAILY PRN Administration CONSTIPATION Melatonin 5 mg 05/23/17 22:00 05/26/17 21:26 Melatonin PO 5 mg HS PRN Administration INSOMNIA Methadone HCl 80 mg 05/24/17 06:00 05/28/17 05:58 Dolophine - PO 80 mg DAILY@0600 ROSA M Administration Nicotine 14 mg 05/24/17 10:00 05/28/17 10:21 Nicoderm Patch - TD 14 mg DAILY ROSA M Administration Nicotine Polacrilex 2 mg 05/23/17 22:12 Nicorette Gum - BUC Q2H PRN NICOTINE REPLACEMENT RX Multivit/Folic Acid/Iron 1 tab 05/24/17 10:00 05/28/17 10:21 Vitamins (Sjr) - PO 1 tab DAILY ROSA M Administration Pseudoephedrine/Triprolidine 1 combo 05/23/17 22:11 Actifed - PO TID PRN NASAL CONGESTION Suvorexant 20 mg 05/28/17 22:00 Belsomra PO HS PRN INSOMNIA Thiamine HCl 100 mg 05/24/17 22:00 05/27/17 22:33 Vitamin B1 - PO 100 mg HS ROSA M Administration Medication(s) Change(s): Increase Belsomra dosage to 20 mg po HS prn for insomnia Current Side Effect: No Lab tests ordered: Yes Lab tests reviewed: Yes Provider note:: Patient reports experiencing difficulty to sleep. Told marketing underwriter that he cotinue to sleep poorly despite taking Belsomra 15 mg at bedtime last night. Requested that medication dosage be increased Total face to face time:: 15 Mental Status Exam - Mental Status Exam Alert and Oriented to: Time, Place, Person Cognitive Function: Fair Patient Appearance: Well Groomed Mood: Hopeful, Euthymic Affect: Appropriate Patient Behavior: Cooperative Speech Pattern: Clear Voice Loudness: Normal Thought Process: Intact, Goal Oriented Thought Disorder: Not Present Hallucinations: Denies Suicidal Ideation: Denies Homicidal Ideation: Denies Insight/Judgement: Fair Sleep: Poorly Appetite: Good Muscle strength/Tone: Normal Gait/Station: Normal Psychiatric Treatment Plan - Problem List (1) Substance-induced sleep disorder Current Visit: Yes (2) Alcohol dependence Current Visit: Yes Qualifiers: Substance use status: uncomplicated Qualified Code(s): F10.20 - Alcohol dependence, uncomplicated (3) Opioid dependence on agonist therapy Current Visit: No (4) Nicotine dependence Current Visit: Yes (5) Hypertension Current Visit: Yes Qualifiers: Hypertension type: essential hypertension Qualified Code(s): I10 - Essential (primary) hypertension (6) S/P triple vessel bypass Current Visit: Yes Initial treatment plan: 1) Discontinue Belsomra as currently ordered. 2) Start Belsomra 20 mg po HS prn for insomnia. 3) Monitor progress
[2017-05-28] MEDS: MAG HYDROX/AL HYDROX/SIMETH 30 ML UNIT-DOSE CUP PO PRN (21:30)
[2017-05-28] MEDS: SUVOREXANT 10 MG TABLET PO PRN (21:30)
[2017-05-28] MEDS: THIAMINE HCL 100 MG TABLET (FP) PO SCH (21:30)
[2017-05-29] MEDS: METHADONE HCL 40 MG DISPERSABLE TABLET PO SCH (06:18)
[2017-05-29] MEDS: MAG HYDROX/AL HYDROX/SIMETH 30 ML UNIT-DOSE CUP PO PRN ×2 (06:19→21:52)
[2017-05-29] MEDS ORDERED: METHADONE HCL 40 MG DISPERSABLE TABLET PO SCH (07:23)
[2017-05-29] MEDS: NICOTINE 14 MG/24 HOURS TOPICAL PATCH TD SCH (10:18)
[2017-05-29] MEDS: PRENATAL VITAMINS W/ FOLIC ACID TABLET (FP) PO SCH (10:18)
[2017-05-29] MEDS: LISINOPRIL 10 MG TABLET (FP) PO SCH (10:18)
--- NOTE | 2017-05-29 14:19 | PN ---
[facility] Progress Note Note: Patient reported to the RN that while he was taking a shower last evening around 9:30, he hit his left elbow agaist the grab bar. Patient denies falling during the incident. Reports pain 5/10 on the left elbow. Patient denies SOB, chest pain, paresthesia or vertigo. Vital Signs Temperature 97.8 F 05/29/17 06:49 Pulse Rate 77 05/29/17 09:25 Respiratory Rate 18 05/29/17 06:49 Blood Pressure 104/69 05/29/17 09:25 O2 Sat by Pulse Oximetry (%) Patient AOx3, in no apparent distress Lungs clear bilateral, no adventitious breath sounds Nomal HR and rhythm BS x4 , no tenderness Full ROM on all extremities, + swelling on the left elbow Skin warm and intact Plan: Cold compress to the area Ibuprofen 600mg PRN x-ray left elbow Continue to monitor
[2017-05-29] MEDS: THIAMINE HCL 100 MG TABLET (FP) PO SCH (21:52)
[2017-05-29] MEDS: SUVOREXANT 10 MG TABLET PO PRN (21:53)
[2017-05-30] MEDS: METHADONE HCL 40 MG DISPERSABLE TABLET PO SCH (06:07)
[2017-05-30] MEDS ORDERED: METHADONE HCL 40 MG DISPERSABLE TABLET PO SCH (07:23)
[2017-05-30] MEDS: IBUPROFEN 600 MG TABLET (FP) PO PRN (10:22)
[2017-05-30] MEDS: LISINOPRIL 10 MG TABLET (FP) PO SCH (10:22)
[2017-05-30] MEDS: PRENATAL VITAMINS W/ FOLIC ACID TABLET (FP) PO SCH (10:22)
[2017-05-30] MEDS: NICOTINE 14 MG/24 HOURS TOPICAL PATCH TD SCH (10:23)
--- NOTE | 2017-05-30 11:18 | PN ---
Psychiatric Progress Note Vital Signs: Vital Signs Period Temp Pulse Resp BP Sys/Cooper Pulse Ox Last 24 Hr 97.9 F 68-70 - 107-111/66-73 Date of Session: 05/30/17 Chief Complaint:: Insomnia HPI: Patient addressing Alcohol Dependence comorbid with Opioid Dependence, Nicotine Dependence and Substance-Induced Sleep Disorder ROS: HTN, S/P Triple bypass Current Medications: Active Medications Generic Name Dose Route Start Last Admin Trade Name Freq PRN Reason Stop Dose Admin Acetaminophen 650 mg 05/23/17 22:11 Tylenol - PO Q4H PRN FEVER Al Hydroxide/Mg Hydroxide 30 ml 05/23/17 22:11 05/29/17 21:52 Mylanta Oral Suspension - PO 30 ml Q6H PRN Administration DYSPEPSIA Eucalyptus/Menthol/Phenol/Sorbitol 1 each 05/23/17 22:11 Cepastat Lozenge - MM Q4H PRN SORE THROAT Guaifenesin 10 ml 05/23/17 22:11 Robitussin Dm - PO Q6H PRN COUGH Hydroxyzine Pamoate 25 mg 05/23/17 22:11 05/26/17 21:26 Vistaril - PO 25 mg Q4H PRN Administration AGITATION Ibuprofen 600 mg 05/29/17 14:02 05/30/17 10:22 Motrin - PO 600 mg Q6H PRN Administration Pain level 4-6 Lisinopril 10 mg 05/24/17 10:00 05/30/17 10:22 Prinivil PO 10 mg DAILY ROSA M Administration Loperamide HCl 4 mg 05/23/17 22:11 Imodium - PO Q6H PRN DIARRHEA Magnesium Citrate 300 ml 05/23/17 22:11 Citroma - PO Q48H PRN CONSTIPATION Magnesium Hydroxide 30 ml 05/23/17 22:11 05/27/17 21:40 Milk Of Magnesia - PO 30 ml DAILY PRN Administration CONSTIPATION Melatonin 5 mg 05/23/17 22:00 05/26/17 21:26 Melatonin PO 5 mg HS PRN Administration INSOMNIA Methadone HCl 80 mg 05/30/17 06:00 05/30/17 06:07 Dolophine - PO 06/05/17 05:59 80 mg DAILY@0600 ROSA M Administration Nicotine 14 mg 05/24/17 10:00 05/30/17 10:23 Nicoderm Patch - TD 14 mg DAILY ROSA M Administration Nicotine Polacrilex 2 mg 05/23/17 22:12 Nicorette Gum - BUC Q2H PRN NICOTINE REPLACEMENT RX Multivit/Folic Acid/Iron 1 tab 05/24/17 10:00 05/30/17 10:22 Vitamins (Sjr) - PO 1 tab DAILY ROSA M Administration Pseudoephedrine/Triprolidine 1 combo 05/23/17 22:11 Actifed - PO TID PRN NASAL CONGESTION Suvorexant 20 mg 05/28/17 22:00 05/29/17 21:53 Belsomra PO 05/31/17 21:59 20 mg HS PRN Administration INSOMNIA Thiamine HCl 100 mg 05/24/17 22:00 05/29/17 21:52 Vitamin B1 - PO 100 mg HS ROSA M Administration Trazodone HCl 100 mg 05/30/17 22:00 Desyrel - PO HS ROSA M Current Side Effect: No Lab tests ordered: Yes Lab tests reviewed: Yes Provider note:: Patient reports still experiencing difficulty to sleep despite taking Belsomra 20 mg at bedtime for last 2 nights. Hypnotic properties as well as adverse-effects including priapism of Trazadone discussed with patient and he agreeed to try it Total face to face time:: 15 Mental Status Exam - Mental Status Exam Alert and Oriented to: Time, Place, Person Cognitive Function: Fair Patient Appearance: Well Groomed Mood: Hopeful, Euthymic Affect: Appropriate Patient Behavior: Cooperative Speech Pattern: Clear Voice Loudness: Normal Thought Process: Intact Thought Disorder: Ideas of Reference Hallucinations: Denies Suicidal Ideation: Denies Homicidal Ideation: Denies Insight/Judgement: Fair Sleep: Poorly Appetite: Good Muscle strength/Tone: Normal Gait/Station: Normal Psychiatric Treatment Plan - Problem List (1) Substance-induced sleep disorder Current Visit: Yes (2) Alcohol dependence Current Visit: Yes Qualifiers: Substance use status: uncomplicated Qualified Code(s): F10.20 - Alcohol dependence, uncomplicated (3) Opioid dependence on agonist therapy Current Visit: No (4) Nicotine dependence Current Visit: Yes (5) Hypertension Current Visit: Yes Qualifiers: Hypertension type: essential hypertension Qualified Code(s): I10 - Essential (primary) hypertension (6) S/P triple vessel bypass Current Visit: Yes Initial treatment plan: 1) Start Trazadone 100 mg po HS for insomnia. 2) Monitor progress
[2017-05-30] MEDS: traZODone HCL 100 MG TABLET (FP) PO SCH (21:37)
[2017-05-30] MEDS: SUVOREXANT 10 MG TABLET PO PRN (21:37)
[2017-05-30] MEDS: THIAMINE HCL 100 MG TABLET (FP) PO SCH (21:38)
[2017-05-31] MEDS: MAG HYDROX/AL HYDROX/SIMETH 30 ML UNIT-DOSE CUP PO PRN (06:25)
[2017-05-31] MEDS: METHADONE HCL 40 MG DISPERSABLE TABLET PO SCH (06:25)
[2017-05-31] MEDS: LISINOPRIL 10 MG TABLET (FP) PO SCH (09:43)
[2017-05-31] MEDS: NICOTINE 14 MG/24 HOURS TOPICAL PATCH TD SCH (09:43)
[2017-05-31] MEDS: PRENATAL VITAMINS W/ FOLIC ACID TABLET (FP) PO SCH (09:43)
[2017-05-31] MEDS: traZODone HCL 100 MG TABLET (FP) PO SCH (21:44)
[2017-05-31] MEDS: THIAMINE HCL 100 MG TABLET (FP) PO SCH (21:44)
[2017-06-01] MEDS: METHADONE HCL 40 MG DISPERSABLE TABLET PO SCH (06:17)
[2017-06-01] MEDS: NICOTINE 14 MG/24 HOURS TOPICAL PATCH TD SCH (11:50)
[2017-06-01] MEDS: PRENATAL VITAMINS W/ FOLIC ACID TABLET (FP) PO SCH (11:50)
[2017-06-01] MEDS: LISINOPRIL 10 MG TABLET (FP) PO SCH (11:50)
[2017-06-01] MEDS: traZODone HCL 100 MG TABLET (FP) PO SCH (21:56)
[2017-06-01] MEDS: THIAMINE HCL 100 MG TABLET (FP) PO SCH (21:56)
[2017-06-02] MEDS: METHADONE HCL 40 MG DISPERSABLE TABLET PO SCH (05:58)
[2017-06-02] MEDS: LISINOPRIL 10 MG TABLET (FP) PO SCH (10:16)
[2017-06-02] MEDS: PRENATAL VITAMINS W/ FOLIC ACID TABLET (FP) PO SCH (10:16)
[2017-06-02] MEDS: NICOTINE 14 MG/24 HOURS TOPICAL PATCH TD SCH (10:17)
[2017-06-02] MEDS: MAG HYDROX/AL HYDROX/SIMETH 30 ML UNIT-DOSE CUP PO PRN (16:56)
[2017-06-02] MEDS: THIAMINE HCL 100 MG TABLET (FP) PO SCH (21:31)
[2017-06-02] MEDS: SUVOREXANT 10 MG TABLET PO PRN (21:31)
[2017-06-02] MEDS: traZODone HCL 100 MG TABLET (FP) PO SCH (21:32)
[2017-06-03] MEDS: METHADONE HCL 40 MG DISPERSABLE TABLET PO SCH (06:00)
[2017-06-03] MEDS: MAG HYDROX/AL HYDROX/SIMETH 30 ML UNIT-DOSE CUP PO PRN (06:01)
[2017-06-03] MEDS: PRENATAL VITAMINS W/ FOLIC ACID TABLET (FP) PO SCH (10:25)
[2017-06-03] MEDS: NICOTINE 14 MG/24 HOURS TOPICAL PATCH TD SCH (10:25)
[2017-06-03] MEDS: LISINOPRIL 10 MG TABLET (FP) PO SCH (10:25)
[2017-06-03] MEDS: THIAMINE HCL 100 MG TABLET (FP) PO SCH (21:40)
[2017-06-03] MEDS: SUVOREXANT 10 MG TABLET PO PRN (21:40)
[2017-06-03] MEDS: SIMETHICONE 80 MG TAB.CHEW (FP) PO PRN (21:41)
[2017-06-03] MEDS: traZODone HCL 100 MG TABLET (FP) PO SCH (21:41)
[2017-06-04] MEDS: METHADONE HCL 40 MG DISPERSABLE TABLET PO SCH (06:11)
[2017-06-04] MEDS: LISINOPRIL 10 MG TABLET (FP) PO SCH (10:10)
[2017-06-04] MEDS: PRENATAL VITAMINS W/ FOLIC ACID TABLET (FP) PO SCH (10:10)
[2017-06-04] MEDS: NICOTINE 14 MG/24 HOURS TOPICAL PATCH TD SCH (10:10)
[2017-06-04] MEDS: SIMETHICONE 80 MG TAB.CHEW (FP) PO PRN ×2 (10:12→21:41)
[2017-06-04] MEDS: THIAMINE HCL 100 MG TABLET (FP) PO SCH (21:41)
[2017-06-04] MEDS: traZODone HCL 100 MG TABLET (FP) PO SCH (21:41)
[2017-06-04] MEDS: SUVOREXANT 10 MG TABLET PO PRN (21:41)
[2017-06-04] MEDS: MELATONIN 5 MG TABLETS PO PRN (21:42)
[2017-06-04] MEDS: hydrOXYzine PAMOATE 25 MG CAPSULE (FP) PO PRN (21:42)
[2017-06-05] MEDS: METHADONE HCL 40 MG DISPERSABLE TABLET PO SCH (06:19)
[2017-06-05] MEDS: LISINOPRIL 10 MG TABLET (FP) PO SCH (10:12)
[2017-06-05] MEDS: NICOTINE 14 MG/24 HOURS TOPICAL PATCH TD SCH (10:12)
[2017-06-05] MEDS: PRENATAL VITAMINS W/ FOLIC ACID TABLET (FP) PO SCH (10:12)
[2017-06-05] MEDS: SIMETHICONE 80 MG TAB.CHEW (FP) PO PRN ×2 (10:13→21:34)
[2017-06-05] MEDS: THIAMINE HCL 100 MG TABLET (FP) PO SCH (21:33)
[2017-06-05] MEDS: traZODone HCL 100 MG TABLET (FP) PO SCH (21:33)
[2017-06-05] MEDS: hydrOXYzine PAMOATE 25 MG CAPSULE (FP) PO PRN (21:33)
[2017-06-06] MEDS: METHADONE HCL 40 MG DISPERSABLE TABLET PO SCH (06:34)
[2017-06-06] MEDS: PRENATAL VITAMINS W/ FOLIC ACID TABLET (FP) PO SCH (10:12)
[2017-06-06] MEDS: NICOTINE 14 MG/24 HOURS TOPICAL PATCH TD SCH (10:12)
[2017-06-06] MEDS: LISINOPRIL 10 MG TABLET (FP) PO SCH (10:12)
[2017-06-06] MEDS: SIMETHICONE 80 MG TAB.CHEW (FP) PO PRN (10:13)
[2017-06-06] MEDS: hydrOXYzine PAMOATE 25 MG CAPSULE (FP) PO PRN (21:36)
[2017-06-06] MEDS: MELATONIN 5 MG TABLETS PO PRN (21:36)
[2017-06-06] MEDS: traZODone HCL 100 MG TABLET (FP) PO SCH (21:36)
[2017-06-06] MEDS: THIAMINE HCL 100 MG TABLET (FP) PO SCH (21:36)
[2017-06-06] MEDS: SUVOREXANT 10 MG TABLET PO PRN (21:36)
[2017-06-06] MEDS: IBUPROFEN 600 MG TABLET (FP) PO PRN (21:37)
[2017-06-07] MEDS: IBUPROFEN 600 MG TABLET (FP) PO PRN ×2 (06:00→21:32)
[2017-06-07] MEDS: METHADONE HCL 40 MG DISPERSABLE TABLET PO SCH (06:01)
[2017-06-07] MEDS: NICOTINE 14 MG/24 HOURS TOPICAL PATCH TD SCH (10:18)
[2017-06-07] MEDS: PRENATAL VITAMINS W/ FOLIC ACID TABLET (FP) PO SCH (10:18)
[2017-06-07] MEDS: LISINOPRIL 10 MG TABLET (FP) PO SCH (10:19)
[2017-06-07] MEDS: SIMETHICONE 80 MG TAB.CHEW (FP) PO PRN (21:33)
[2017-06-07] MEDS: hydrOXYzine PAMOATE 25 MG CAPSULE (FP) PO PRN (21:33)
[2017-06-07] MEDS: MELATONIN 5 MG TABLETS PO PRN (21:33)
[2017-06-07] MEDS: SUVOREXANT 10 MG TABLET PO PRN (21:33)
[2017-06-07] MEDS: traZODone HCL 100 MG TABLET (FP) PO SCH (21:33)
[2017-06-07] MEDS: THIAMINE HCL 100 MG TABLET (FP) PO SCH (21:34)
[2017-06-08] MEDS: METHADONE HCL 40 MG DISPERSABLE TABLET PO SCH (06:10)
[2017-06-08] MEDS: SIMETHICONE 80 MG TAB.CHEW (FP) PO PRN (10:01)
[2017-06-08] MEDS: PRENATAL VITAMINS W/ FOLIC ACID TABLET (FP) PO SCH (10:01)
[2017-06-08] MEDS: NICOTINE 14 MG/24 HOURS TOPICAL PATCH TD SCH (10:01)
[2017-06-08] MEDS: LISINOPRIL 10 MG TABLET (FP) PO SCH (10:02)
[2017-06-08] MEDS: THIAMINE HCL 100 MG TABLET (FP) PO SCH (21:32)
[2017-06-08] MEDS: MELATONIN 5 MG TABLETS PO PRN (21:32)
[2017-06-08] MEDS: hydrOXYzine PAMOATE 25 MG CAPSULE (FP) PO PRN (21:32)
[2017-06-08] MEDS: SUVOREXANT 10 MG TABLET PO PRN (21:32)
[2017-06-08] MEDS: traZODone HCL 100 MG TABLET (FP) PO SCH (21:32)
[2017-06-08] MEDS: IBUPROFEN 600 MG TABLET (FP) PO PRN (21:32)
[2017-06-09] MEDS: METHADONE HCL 40 MG DISPERSABLE TABLET PO SCH (06:00)
[2017-06-09] MEDS: PRENATAL VITAMINS W/ FOLIC ACID TABLET (FP) PO SCH (10:20)
[2017-06-09] MEDS: NICOTINE 14 MG/24 HOURS TOPICAL PATCH TD SCH (10:20)
[2017-06-09] MEDS: LISINOPRIL 10 MG TABLET (FP) PO SCH (10:20)
[2017-06-09] MEDS: SIMETHICONE 80 MG TAB.CHEW (FP) PO PRN ×2 (10:21→21:27)
[2017-06-09] MEDS: IBUPROFEN 600 MG TABLET (FP) PO PRN (21:27)
[2017-06-09] MEDS: traZODone HCL 100 MG TABLET (FP) PO SCH (21:27)
[2017-06-09] MEDS: SUVOREXANT 10 MG TABLET PO PRN (21:27)
[2017-06-09] MEDS: THIAMINE HCL 100 MG TABLET (FP) PO SCH (21:27)
[2017-06-09] MEDS: hydrOXYzine PAMOATE 25 MG CAPSULE (FP) PO PRN (21:27)
[2017-06-09] MEDS: MELATONIN 5 MG TABLETS PO PRN (21:27)
[2017-06-09] MEDS ORDERED: SUVOREXANT 10 MG TABLET PO PRN (22:00)
[2017-06-10] MEDS: METHADONE HCL 40 MG DISPERSABLE TABLET PO SCH (06:03)
[2017-06-10] MEDS: NICOTINE 14 MG/24 HOURS TOPICAL PATCH TD SCH (10:10)
[2017-06-10] MEDS: PRENATAL VITAMINS W/ FOLIC ACID TABLET (FP) PO SCH (10:10)
[2017-06-10] MEDS: LISINOPRIL 10 MG TABLET (FP) PO SCH (10:11)
[2017-06-10] MEDS: SUVOREXANT 10 MG TABLET PO PRN (21:46)
[2017-06-10] MEDS: traZODone HCL 100 MG TABLET (FP) PO SCH (21:46)
[2017-06-10] MEDS: THIAMINE HCL 100 MG TABLET (FP) PO SCH (21:46)
[2017-06-10] MEDS: LIDOCAINE PATCH REMOVAL MC SCH (21:47)
[2017-06-10] MEDS: IBUPROFEN 600 MG TABLET (FP) PO PRN (21:49)
[2017-06-11] MEDS: METHADONE HCL 40 MG DISPERSABLE TABLET PO SCH (06:26)
[2017-06-11] MEDS: PRENATAL VITAMINS W/ FOLIC ACID TABLET (FP) PO SCH (09:52)
[2017-06-11] MEDS: LIDOCAINE 5% TOPICAL PATCH TP SCH (09:52)
[2017-06-11] MEDS: NICOTINE 14 MG/24 HOURS TOPICAL PATCH TD SCH (09:52)
[2017-06-11] MEDS: LISINOPRIL 10 MG TABLET (FP) PO SCH (09:52)
[2017-06-11] MEDS: hydrOXYzine PAMOATE 25 MG CAPSULE (FP) PO PRN (21:42)
[2017-06-11] MEDS: MELATONIN 5 MG TABLETS PO PRN (21:42)
[2017-06-11] MEDS: traZODone HCL 100 MG TABLET (FP) PO SCH (21:42)
[2017-06-11] MEDS: SIMETHICONE 80 MG TAB.CHEW (FP) PO PRN (21:42)
[2017-06-11] MEDS: SUVOREXANT 10 MG TABLET PO PRN (21:42)
[2017-06-11] MEDS: THIAMINE HCL 100 MG TABLET (FP) PO SCH (21:42)
[2017-06-11] MEDS: IBUPROFEN 600 MG TABLET (FP) PO PRN (21:42)
[2017-06-11] MEDS: LIDOCAINE PATCH REMOVAL MC SCH (21:44)
[2017-06-12] MEDS: METHADONE HCL 40 MG DISPERSABLE TABLET PO SCH (06:23)
[2017-06-12] MEDS: LIDOCAINE 5% TOPICAL PATCH TP SCH (10:41)
[2017-06-12] MEDS: NICOTINE 14 MG/24 HOURS TOPICAL PATCH TD SCH (10:41)
[2017-06-12] MEDS: PRENATAL VITAMINS W/ FOLIC ACID TABLET (FP) PO SCH (10:41)
[2017-06-12] MEDS: LISINOPRIL 10 MG TABLET (FP) PO SCH (10:41)
[2017-06-12] MEDS: SIMETHICONE 80 MG TAB.CHEW (FP) PO PRN (11:20)
[2017-06-12] MEDS: hydrOXYzine PAMOATE 25 MG CAPSULE (FP) PO PRN (21:35)
[2017-06-12] MEDS: THIAMINE HCL 100 MG TABLET (FP) PO SCH (21:35)
[2017-06-12] MEDS: traZODone HCL 100 MG TABLET (FP) PO SCH (21:35)
[2017-06-12] MEDS: IBUPROFEN 600 MG TABLET (FP) PO PRN (21:37)
[2017-06-12] MEDS: SUVOREXANT 10 MG TABLET PO PRN (21:38)
[2017-06-12] MEDS: LIDOCAINE PATCH REMOVAL MC SCH (21:49)
[2017-06-12] MEDS ORDERED: SUVOREXANT 10 MG TABLET PO PRN (22:00)
[2017-06-13] MEDS: METHADONE HCL 40 MG DISPERSABLE TABLET PO SCH (06:01)
[2017-06-13] MEDS: LIDOCAINE 5% TOPICAL PATCH TP SCH (10:35)
[2017-06-13] MEDS: PRENATAL VITAMINS W/ FOLIC ACID TABLET (FP) PO SCH (10:35)
[2017-06-13] MEDS: LISINOPRIL 10 MG TABLET (FP) PO SCH (10:35)
[2017-06-13] MEDS: NICOTINE 14 MG/24 HOURS TOPICAL PATCH TD SCH (10:35)
[2017-06-13] MEDS: MELATONIN 5 MG TABLETS PO PRN (21:48)
[2017-06-13] MEDS: IBUPROFEN 600 MG TABLET (FP) PO PRN (21:48)
[2017-06-13] MEDS: THIAMINE HCL 100 MG TABLET (FP) PO SCH (21:48)
[2017-06-13] MEDS: SUVOREXANT 10 MG TABLET PO PRN (21:50)
[2017-06-13] MEDS: SIMETHICONE 80 MG TAB.CHEW (FP) PO PRN (21:50)
[2017-06-13] MEDS: traZODone HCL 100 MG TABLET (FP) PO SCH (21:51)
[2017-06-13] MEDS: LIDOCAINE PATCH REMOVAL MC SCH (21:51)
[2017-06-13] MEDS: hydrOXYzine PAMOATE 25 MG CAPSULE (FP) PO PRN (21:51)
[2017-06-14] MEDS: METHADONE HCL 40 MG DISPERSABLE TABLET PO SCH (06:25)
[2017-06-14] MEDS: LIDOCAINE 5% TOPICAL PATCH TP SCH (10:24)
[2017-06-14] MEDS: LISINOPRIL 10 MG TABLET (FP) PO SCH (10:24)
[2017-06-14] MEDS: PRENATAL VITAMINS W/ FOLIC ACID TABLET (FP) PO SCH (10:24)
[2017-06-14] MEDS: NICOTINE 14 MG/24 HOURS TOPICAL PATCH TD SCH (10:24)
[2017-06-14] MEDS: SUVOREXANT 10 MG TABLET PO PRN (22:04)
[2017-06-14] MEDS: THIAMINE HCL 100 MG TABLET (FP) PO SCH (22:04)
[2017-06-14] MEDS: hydrOXYzine PAMOATE 25 MG CAPSULE (FP) PO PRN (22:04)
[2017-06-14] MEDS: traZODone HCL 100 MG TABLET (FP) PO SCH (22:04)
[2017-06-14] MEDS: MELATONIN 5 MG TABLETS PO PRN (22:04)
[2017-06-14] MEDS: IBUPROFEN 600 MG TABLET (FP) PO PRN (22:04)
[2017-06-14] MEDS: LIDOCAINE PATCH REMOVAL MC SCH (22:07)
[2017-06-15] MEDS: METHADONE HCL 40 MG DISPERSABLE TABLET PO SCH (06:19)
[2017-06-15] MEDS: LISINOPRIL 10 MG TABLET (FP) PO SCH (10:36)
[2017-06-15] MEDS: PRENATAL VITAMINS W/ FOLIC ACID TABLET (FP) PO SCH (10:40)
[2017-06-15] MEDS: NICOTINE 14 MG/24 HOURS TOPICAL PATCH TD SCH (10:41)
[2017-06-15] MEDS: LIDOCAINE 5% TOPICAL PATCH TP SCH (10:41)
[2017-06-15] MEDS: THIAMINE HCL 100 MG TABLET (FP) PO SCH (21:52)
[2017-06-15] MEDS: traZODone HCL 100 MG TABLET (FP) PO SCH (21:52)
[2017-06-15] MEDS: LIDOCAINE PATCH REMOVAL MC SCH (21:52)
[2017-06-15] MEDS: SUVOREXANT 10 MG TABLET PO PRN (21:54)
[2017-06-15] MEDS: SIMETHICONE 80 MG TAB.CHEW (FP) PO PRN (21:55)
[2017-06-16] MEDS: METHADONE HCL 40 MG DISPERSABLE TABLET PO SCH (06:29)
[2017-06-16] MEDS: NICOTINE 14 MG/24 HOURS TOPICAL PATCH TD SCH (10:32)
[2017-06-16] MEDS: LISINOPRIL 10 MG TABLET (FP) PO SCH (10:32)
[2017-06-16] MEDS: PRENATAL VITAMINS W/ FOLIC ACID TABLET (FP) PO SCH (10:32)
[2017-06-16] MEDS: LIDOCAINE 5% TOPICAL PATCH TP SCH (10:33)
[2017-06-16] MEDS: SUVOREXANT 10 MG TABLET PO PRN (21:17)
[2017-06-16] MEDS: traZODone HCL 100 MG TABLET (FP) PO SCH (21:17)
[2017-06-16] MEDS: hydrOXYzine PAMOATE 25 MG CAPSULE (FP) PO PRN (21:18)
[2017-06-16] MEDS: IBUPROFEN 600 MG TABLET (FP) PO PRN (21:18)
[2017-06-16] MEDS: MELATONIN 5 MG TABLETS PO PRN (21:18)
[2017-06-16] MEDS: LIDOCAINE PATCH REMOVAL MC SCH (21:19)
[2017-06-16] MEDS: THIAMINE HCL 100 MG TABLET (FP) PO SCH (22:10)
[2017-06-17] MEDS: METHADONE HCL 40 MG DISPERSABLE TABLET PO SCH (06:15)
[2017-06-17] MEDS: LISINOPRIL 10 MG TABLET (FP) PO SCH (10:18)
[2017-06-17] MEDS: PRENATAL VITAMINS W/ FOLIC ACID TABLET (FP) PO SCH (10:18)
[2017-06-17] MEDS: NICOTINE 14 MG/24 HOURS TOPICAL PATCH TD SCH (10:18)
[2017-06-17] MEDS: LIDOCAINE 5% TOPICAL PATCH TP SCH (10:19)
[2017-06-17] MEDS: traZODone HCL 100 MG TABLET (FP) PO SCH (21:57)
[2017-06-17] MEDS: THIAMINE HCL 100 MG TABLET (FP) PO SCH (21:57)
[2017-06-17] MEDS: LIDOCAINE PATCH REMOVAL MC SCH (21:57)
[2017-06-17] MEDS: IBUPROFEN 600 MG TABLET (FP) PO PRN (21:58)
[2017-06-17] MEDS: MELATONIN 5 MG TABLETS PO PRN (21:59)
[2017-06-18] MEDS: METHADONE HCL 40 MG DISPERSABLE TABLET PO SCH (06:01)
[2017-06-18] MEDS: NICOTINE 14 MG/24 HOURS TOPICAL PATCH TD SCH (10:28)
[2017-06-18] MEDS: LIDOCAINE 5% TOPICAL PATCH TP SCH (10:28)
[2017-06-18] MEDS: PRENATAL VITAMINS W/ FOLIC ACID TABLET (FP) PO SCH (10:28)
[2017-06-18] MEDS: LISINOPRIL 10 MG TABLET (FP) PO SCH (10:28)
[2017-06-18] MEDS: LIDOCAINE PATCH REMOVAL MC SCH (21:48)
[2017-06-18] MEDS: THIAMINE HCL 100 MG TABLET (FP) PO SCH (21:48)
[2017-06-18] MEDS: traZODone HCL 100 MG TABLET (FP) PO SCH (21:48)
[2017-06-18] MEDS: IBUPROFEN 600 MG TABLET (FP) PO PRN (21:49)
[2017-06-18] MEDS: SUVOREXANT 10 MG TABLET PO PRN (21:51)
[2017-06-18] MEDS: SIMETHICONE 80 MG TAB.CHEW (FP) PO PRN (21:51)
[2017-06-18] MEDS ORDERED: SUVOREXANT 10 MG TABLET PO PRN (22:00)
[2017-06-19] MEDS: METHADONE HCL 40 MG DISPERSABLE TABLET PO SCH (05:59)
[2017-06-19] MEDS: PRENATAL VITAMINS W/ FOLIC ACID TABLET (FP) PO SCH (10:08)
[2017-06-19] MEDS: NICOTINE 14 MG/24 HOURS TOPICAL PATCH TD SCH (10:08)
[2017-06-19] MEDS: LIDOCAINE 5% TOPICAL PATCH TP SCH (10:08)
[2017-06-19] MEDS: LISINOPRIL 10 MG TABLET (FP) PO SCH (10:08)
--- NOTE | 2017-06-19 11:14 | PN ---
Psychiatric Progress Note Vital Signs: Vital Signs Period Temp Pulse Resp BP Sys/Cooper Pulse Ox Last 24 Hr 98 F 69-80 -18 123-125/78-79 Date of Session: 06/19/17 Chief Complaint:: Discharge Note HPI: Patient addressing Alcohol Dependence comorbid with Opioid Dependence on Agonist Therapy, Nicotine Dependence and Substance-Induced Sleep Disorder ROS: HTN, CAD s/p triple vessel bypass, Current Medications: Active Medications Generic Name Dose Route Start Last Admin Trade Name Freq PRN Reason Stop Dose Admin Acetaminophen 650 mg 05/23/17 22:11 05/31/17 21:45 Tylenol - PO 650 mg Q4H PRN Administration FEVER Al Hydroxide/Mg Hydroxide 30 ml 05/23/17 22:11 06/03/17 06:01 Mylanta Oral Suspension - PO 30 ml Q6H PRN Administration DYSPEPSIA Eucalyptus/Menthol/Phenol/Sorbitol 1 each 05/23/17 22:11 Cepastat Lozenge - MM Q4H PRN SORE THROAT Guaifenesin 10 ml 05/23/17 22:11 Robitussin Dm - PO Q6H PRN COUGH Hydroxyzine Pamoate 25 mg 05/23/17 22:11 06/16/17 21:18 Vistaril - PO 25 mg Q4H PRN Administration AGITATION Ibuprofen 600 mg 05/29/17 14:02 06/18/17 21:49 Motrin - PO 600 mg Q6H PRN Administration Pain level 4-6 Lidocaine 1 patch 06/11/17 10:00 06/19/17 10:08 Lidoderm Patch - TP 1 patch DAILY ROSA M Administration Lisinopril 10 mg 05/24/17 10:00 06/19/17 10:08 Prinivil PO 10 mg DAILY ROSA M Administration Loperamide HCl 4 mg 05/23/17 22:11 Imodium - PO Q6H PRN DIARRHEA Magnesium Citrate 300 ml 05/23/17 22:11 Citroma - PO Q48H PRN CONSTIPATION Magnesium Hydroxide 30 ml 05/23/17 22:11 05/27/17 21:40 Milk Of Magnesia - PO 30 ml DAILY PRN Administration CONSTIPATION Melatonin 5 mg 05/23/17 22:00 06/17/17 21:59 Melatonin PO 5 mg HS PRN Administration INSOMNIA Methadone HCl 80 mg 06/19/17 06:00 06/19/17 05:59 Dolophine - PO 06/26/17 05:59 80 mg DAILY@0600 ROSA M Administration Miscellaneous 1 each 06/10/17 22:00 06/18/17 21:48 Lidoderm Patch Removal MC 1 each DAILY@2200 ROSA M Administration Nicotine 14 mg 05/24/17 10:00 06/19/17 10:08 Nicoderm Patch - TD 14 mg DAILY ROSA M Administration Nicotine Polacrilex 2 mg 05/23/17 22:12 Nicorette Gum - BUC Q2H PRN NICOTINE REPLACEMENT RX Multivit/Folic Acid/Iron 1 tab 05/24/17 10:00 06/19/17 10:08 Vitamins (Sjr) - PO 1 tab DAILY ROSA M Administration Pseudoephedrine/Triprolidine 1 combo 05/23/17 22:11 Actifed - PO TID PRN NASAL CONGESTION Simethicone 80 mg 06/03/17 16:20 06/18/17 21:51 Mylicon - PO 80 mg Q4H PRN Administration GAS Suvorexant 20 mg 06/18/17 22:00 Belsomra PO HS PRN INSOMNIA Thiamine HCl 100 mg 05/24/17 22:00 06/18/17 21:48 Vitamin B1 - PO 100 mg HS ROSA M Administration Trazodone HCl 100 mg 05/30/17 22:00 06/18/17 21:48 Desyrel - PO 100 mg HS ROSA M Administration Current Side Effect: No Lab tests ordered: Yes Lab tests reviewed: Yes Provider note:: Patient will complete this program on 06/20/17. He has met his treatment goals and will continue to address his issues in outpatient treatment at [facility], [place].He verbalized understanding of the consequences of his addiction and from his participation in this program, he has learned how to change his lifestyle in order to maintain abstinence. He responded well to Trazadone 100mg po HS and Belsomra 20 mg po HS prn for sleep. Script for 30 days supply of Trazadone will be electronically transmitted to [facility] at [address] [place], [place] [address]. He is stable for discharge on 06/20/17 Total face to face time:: 35 Mental Status Exam - Mental Status Exam Alert and Oriented to: Time, Place, Person Cognitive Function: Fair Patient Appearance: Well Groomed Mood: Hopeful, Euthymic Affect: Appropriate Patient Behavior: Cooperative Speech Pattern: Clear Voice Loudness: Normal Thought Process: Intact, Goal Oriented Thought Disorder: Not Present Hallucinations: Denies Suicidal Ideation: Denies Homicidal Ideation: Denies Insight/Judgement: Fair Sleep: Fair Appetite: Good Muscle strength/Tone: Normal Gait/Station: Normal Psychiatric Treatment Plan - Problem List (1) Substance-induced sleep disorder Current Visit: Yes (2) Alcohol dependence Current Visit: Yes Qualifiers: Substance use status: uncomplicated Qualified Code(s): F10.20 - Alcohol dependence, uncomplicated (3) Opioid dependence on agonist therapy Current Visit: No (4) Nicotine dependence Current Visit: Yes (5) Hypertension Current Visit: Yes Qualifiers: Hypertension type: essential hypertension Qualified Code(s): I10 - Essential (primary) hypertension (6) S/P triple vessel bypass Current Visit: Yes Initial treatment plan: Patient will be discharged tomorrow and regfer[facility] to [facility] for [facility]
[2017-06-19] MEDS: traZODone HCL 100 MG TABLET (FP) PO SCH (21:38)
[2017-06-19] MEDS: LIDOCAINE PATCH REMOVAL MC SCH (21:38)
[2017-06-19] MEDS: THIAMINE HCL 100 MG TABLET (FP) PO SCH (21:39)
[2017-06-19] MEDS: IBUPROFEN 600 MG TABLET (FP) PO PRN (21:40)
[2017-06-19] MEDS: SIMETHICONE 80 MG TAB.CHEW (FP) PO PRN (21:44)
[2017-06-20 01:56] VITALS: BP 148/99; PULSE 70; TEMP 97.6
--- NOTE | 2017-06-20 02:01 | PN ---
[facility] Progress Note Note: Patient was assessed on the unit. He is c/o of diffused pain to chest radiating to B/L arms. He reports the pain started in the last 40 minutes and currently rates the pain as 5/10 but it was worse before. He denies nausea, vomiting but is complaining of acid reflux. EKG: NRS, right superior axis deviation, pulmonary disease pattern, ST & T wave abnormality, Pt. to be evaluated at [facility] ER. Report given to Dr. Oliver.
[2017-06-20] MEDS: METHADONE HCL 40 MG DISPERSABLE TABLET PO SCH (06:00)
== END 2017-06-20 07:30 | disposition short-term general hospital (02) | DRG 895 ==
LOC: YASAS 19:43 → Y3W 21:23
PROVIDERS: ADMIT Psychiatry & Neurology Psychiatry; ATTEND Psychiatry & Neurology Psychiatry
PROC: HZ42ZZZ Group Counseling for Substance Abuse Treatment, Cognitive-Behavioral (ICD-10-PCS; principal; 2017-05-23)
DX: F10.20 Alcohol dependence, uncomplicated (principal); F19.282 Other psychoactive substance dependence with psychoactive substance-induced sleep disorder; F17.210 Nicotine dependence, cigarettes, uncomplicated; F32.9 Major depressive disorder, single episode, unspecified; G47.00 Insomnia, unspecified; I10 Essential (primary) hypertension; M79.89 Other specified soft tissue disorders; R26.89 Other abnormalities of gait and mobility; Z99.89 Dependence on other enabling machines and devices; Z95.1 Presence of aortocoronary bypass graft
CPT/HCPCS: 73070-TC-LT-FY

== ENCOUNTER 2017-06-20 02:48 | Inpatient (IN) | payer OTHER ==
[2017-06-20 03:03] VITALS: BMI 25.1
[2017-06-20] MEDS ORDERED: NITROGLYCERIN 2% OINTMENT - 1GM PACKET TD ONE ×2 (03:10→03:16)
[2017-06-20] MEDS ORDERED: ASPIRIN 81 MG CHEWABLE TABLETS PO ONE (03:10)
--- NOTE | 2017-06-20 03:11 | PDOC ---
History of Present Illness - General History Source: Patient Exam Limitations: No Limitations - History of Present Illness Initial Comments: 06/20/17 03:18 The patient is a 61 year old male with a significant PMH of CAD (s/p triple bypass), HTN. and alcohol abuse who presents to the emergency department via EMS from [facility] with chest pain that awoke him from sleep prior to arrival. The patient describes his chest pain as a pressure like sensation with radiation to the left shoulder, initially 10/10 in severity but now 3/10 at presentation. He states he has been compliant with his Lisinopril but has not taken his Aspirin for the few days he has been at [facility] so far. The patient denies shortness of breath, headache, and dizziness. Denies fever, chills, nausea, vomit, diarrhea and constipation. Denies dysuria, frequency, urgency and hematuria. Allergies: NKA Past surgical history: Triple bypass. Social history: Alcohol abuse. Heroin abuse. Current someday smoker. PCP: None reported. Timing/Duration: intermittent <Urbano Mckenna - Last Filed: 06/20/17 05:22> - General History Source: Patient <Josiah Posadas - Last Filed: 06/20/17 05:27> - General Chief Complaint: Chest Pain Stated Complaint: CHEST PAIN Time Seen by Provider: 06/20/17 03:03 Past History <Urbano Mckenna - Last Filed: 06/20/17 05:22> - Past Medical History Anemia: No Asthma: No Cancer: No Cardiac Disorders: No CVA: No COPD: No Dementia: No Diabetes: No GI Disorders: No Disorders: No HTN: Yes Hypercholesterolemia: No Kidney Stones: No Liver Disease: No Seizures: No Thyroid Disease: No - Surgical History Abdominal Surgery: No Appendectomy: No Cardiac Surgery: No Cholecystectomy: Yes Lung Surgery: Yes (triple bypass sx in 03/2017) Neurologic Surgery: No Orthopedic Surgery: No - Reproductive History Testicular Surgery: No - Immunization History Immunization Up to Date: Yes - Suicide/Smoking/Psychosocial Hx Smoking History: Current some day smoker Have you smoked in the past 12 months: No Number of Cigarettes Smoked Daily: 10 Information on smoking cessation initiated: No 'Breaking Loose' booklet given: 05/23/17 Hx Alcohol Use: No Drug/Substance Use Hx: No Substance Use Type: Alcohol (Started drinking alcohol at age 17, consumes 2 pints of vodka daily. Last drank on 05/19/17), Heroin (Started using heroin at age 17, consumes 3 bags daily. Last used on 05/19/17. ) Hx Substance Use Treatment: Yes (Currently attends [facility]; one previous recent inpt detox @ [facility]) <Josiah Posadas - Last Filed: 06/20/17 05:27> - Past Medical History Allergies/Adverse Reactions: Allergies Allergy/AdvReac Type Severity Reaction Status Date / Time No Known Allergies Allergy Verified 06/20/17 03:03 Home Medications: Ambulatory Orders Methadone [Dolophine -] 80 mg PO DAILY 05/23/17 Lisinopril [Prinivil] 10 mg PO DAILY #30 tablet 06/19/17 traZODone HCL [Desyrel -] 100 mg PO HS #30 tablet 06/19/17 Review of Systems - Review of Systems Able to Perform ROS?: Yes Comments:: 06/20/17 03:18 CONSTITUTIONAL: Absent: fever, chills, diaphoresis, generalized weakness, malaise, loss of appetite HEENT: Absent: rhinorrhea, nasal congestion, throat pain, throat swelling, difficulty swallowing, mouth swelling, ear pain, eye pain, visual Changes CARDIOVASCULAR: (+) Chest pain with radiation to left shoulder. Absent: syncope, palpitations, irregular heart rate, lightheadedness, peripheral edema RESPIRATORY: Absent: cough, shortness of breath, dyspnea with exertion, orthopnea, wheezing, stridor, hemoptysis GASTROINTESTINAL: Absent: abdominal pain, abdominal distension, nausea, vomiting, diarrhea, constipation, melena, hematochezia GENITOURINARY: Absent: dysuria, frequency, urgency, hesitancy, hematuria, flank pain, genital pain MUSCULOSKELETAL: Absent: myalgia, arthralgia, joint swelling SKIN: Absent: rash, itching, pallor HEMATOLOGIC/IMMUNOLOGIC: Absent: easy bleeding, easy bruising, lymphadenopathy, frequent infections ENDOCRINE: Absent: unexplained weight gain, unexplained weight loss, heat intolerance, cold intolerance NEUROLOGIC: Absent: headache, focal weakness or paresthesias, dizziness, unsteady gait, seizure, mental status changes, bladder or bowel incontinence PSYCHIATRIC: Absent: anxiety, depression, suicidal or homicidal ideation, hallucinations. <Urbano Mckenna - Last Filed: 06/20/17 05:22> *Physical Exam - Vital Signs Last Vital Signs Temp Pulse Resp BP Pulse Ox 97.5 F L 61 16 145/95 98 06/20/17 02:59 06/20/17 02:59 06/20/17 02:59 06/20/17 02:59 06/20/17 02:59 - Physical Exam Comments: 06/20/17 03:18 GENERAL: Well developed, well nourished. Awake and alert. No acute distress. HEENT: Normocephalic, atraumatic. PERRLA, EOMI. No conjunctival pallor. Sclera are non- icteric. Moist mucous membranes. Oropharynx is clear. NECK: Supple. Full ROM. No JVD. Carotid pulses 2+ and symmetric, without bruits. No thyromegaly. No lymphadenopathy. CARDIOVASCULAR: Regular rate and rhythm. No murmurs, rubs, or gallops. Distal pulses are 2+ and symmetric. PULMONARY: No evidence of respiratory distress. Lungs clear to auscultation bilaterally. No wheezing, rales or rhonchi. ABDOMINAL: Soft. Non-tender. Non-distended. No rebound or guarding. No organomegaly. Normoactive bowel sounds. MUSCULOSKELETAL Normal range of motion at all joints. No bony deformities or tenderness. No CVA tenderness. EXTREMITIES: No cyanosis. No clubbing. No edema. No calf tenderness. SKIN: Warm and dry. Normal capillary refill. No rashes. No jaundice. NEUROLOGICAL: Alert, awake, appropriate. Cranial nerves 2-12 intact. No deficits to light touch and temperature in face, upper extremities and lower extremities. No motor deficits in the in face, upper extremities and lower extremities. Normoreflexic in the upper and lower extremities. Normal speech. Toes are downgoing bilaterally. Gait is normal without ataxia. PSYCHIATRIC: Cooperative. Good eye contact. Appropriate mood and affect. <Urbano Mckenna - Last Filed: 06/20/17 05:22> - Vital Signs Last Vital Signs Temp Pulse Resp BP Pulse Ox 97.5 F L 61 16 145/95 98 06/20/17 02:59 06/20/17 02:59 06/20/17 02:59 06/20/17 02:59 06/20/17 02:59 <Josiah Posadas - Last Filed: 06/20/17 05:27> Heart Score/ECG Review #1 06/20/17 03:21 EKG done at 2:55 Vent rate 61 bpm Sinus rhythm with marked sinus arrythmia ST & T wave abnormality, consider lateral ischemia Abnormal ECG <Urbano Mckenna - Last Filed: 06/20/17 05:22> ED Treatment Course - LABORATORY CBC & Chemistry Diagram: 06/20/17 03:26 06/20/17 03:26 <Urbano Mckenna - Last Filed: 06/20/17 05:22> - LABORATORY CBC & Chemistry Diagram: 06/20/17 03:26 06/20/17 03:26 <Josiah Posadas - Last Filed: 06/20/17 05:27> Medical Decision Making - Medical Decision Making 06/20/17 05:18 Dr. Posadas: The scribe's documentation has been prepared under my direction and personally reviewed by me in its entirery. I confirm that the note above accurately reflects all work, treatment, procedures, and medical decision making performed by me. 06/20/17 05:18 Spoke to DINORA Delarosa at [facility]. pt to be admitted. Informed me that pt has been medicadid <Josiah Posadas - Last Filed: 06/20/17 05:27> *DC/Admit/Observation/Transfer - Attestations Scribe Attestion: 06/20/17 03:19 Documentation prepared by Urbano Mckenna, acting as nurses medical assistants phlebotomists for Josiah Posadas DO. <Urbano Mckenna - Last Filed: 06/20/17 05:22> - Discharge Dispostion Decision to Admit order: Yes <Josiah Posadas - Last Filed: 06/20/17 05:27> Diagnosis at time of Disposition: Elevated troponin, Chest pain, Methadone maintenance therapy patient, NSTEMI ( non-ST elevated myocardial infarction) - Discharge Dispostion Condition at time of disposition: Stable
[2017-06-20] MEDS ORDERED: ASPIRIN 325 MG TABLET ONE (03:15)
[2017-06-20 03:36] LABS: BASO % 0.6 % (0-2.0); EOS % 8.6 % (0-4.5); HEMATOCRIT 35.4 % (35.4-49); HEMOGLOBIN 12.2 GM/dL (11.7-16.9); MCH 30.8 pg (25.7-33.7); MCHC 34.5 g/dl (32.0-35.9); MEAN CELL VOLUME 89.3 fl (80-96); MEAN PLT VOLUME 8.8 fl (7.5-11.1); MONO % 11.4 % (3.8-10.2); NEUT % 57.4 % (42.8-82.8); PLATELET COUNT 157 K/MM3 (134-434); RBC 3.96 M/mm3 (4.00-5.60); RDW 14.9 % (11.9-15.9); WHITE BLOOD COUNT 5.8 K/mm3 (4.0-10.0)
[2017-06-20 03:49] LABS: INR 0.98 (0.82-1.09); PROTHROMBIN TIME (PATIENT) 11.1 SEC (9.7-13.0)
[2017-06-20 04:01] LABS: ALBUMIN 3.4 g/dl (3.4-5.0); ANION GAP 4 (8-16); BILIRUBIN,TOTAL 0.2 mg/dL (0.2-1.0); BLOOD UREA NITROGEN 19 mg/dL (7-18); CALCIUM 8.5 mg/dL (8.5-10.1); CHLORIDE 103 mmol/L (98-107); CO2 30 mmol/L (21-32); CREATININE 0.9 mg/dL (0.7-1.3); GLUCOSE,RANDOM 108 mg/dL (74-106); LIPASE 49 U/L (73-393); MAGNESIUM 2.3 mg/dL (1.8-2.4); POTASSIUM 4.2 mmol/L (3.5-5.1); SGOT/AST 14 U/L (15-37); SGPT/ALT 25 U/L (12-78); SODIUM 137 mmol/L (136-145); TOT PROT 6.9 g/dl (6.4-8.2)
[2017-06-20 04:04] LABS: ALK PHOS 82 U/L (45-117)
[2017-06-20] MEDS ORDERED: METHADONE HCL 10 MG TABLET PO ONE (05:09)
[2017-06-20] MEDS ORDERED: HEPARIN NA (PORCINE) 5,000 UNITS/ML 1ML VIAL IVPUSH PRN ×2 (05:24)
[2017-06-20] MEDS ORDERED: CLOPIDOGREL BISULFATE 300 MG TABLET PO ONE (05:24)
[2017-06-20] MEDS ORDERED: METHADONE HCL 40 MG DISPERSABLE TABLET ONE (05:24)
[2017-06-20] MEDS ORDERED: CLOPIDOGREL BISULFATE 300 MG TABLET ONE (05:25)
[2017-06-20] MEDS ORDERED: SODIUM CHLORIDE 1,000 ML IV SCH (06:15)
[2017-06-20] MEDS ORDERED: HEPARIN INFUSION - 25,000 UNITS/500 ML INFUS.BAG IVPB ONE (06:16)
[2017-06-20] MEDS ORDERED: morphine SULFATE 4 MG/ML VIAL IVPUSH ONE (06:16)
[2017-06-20] MEDS ORDERED: HEPARIN NA (PORCINE) 5,000 UNITS/ML 1ML VIAL ONE (06:16)
--- NOTE | 2017-06-20 06:17 | HP ---
CHIEF COMPLAINT: chest pain PCP: none HISTORY OF PRESENT ILLNESS: 61 yr old man with CABG in Feb 2017, transferred from [facility] for continuous chest pain starting around 3Am. He was sleeping and was awoken by the pain. It is across his chest and radiates to both his arms and back, 10/10, feels like a squeezing pain. he feels that it affected his breathing and he was not able to handle the pain. Pain is similar to the pain he had prior to his CABG. Yesterday he had an episode of not being able to eat his food, does not recall what it was, but it felt like it was getting stuck in his throat. Since his surgery he feels that intermittently he has trouble swallowing his food and needs to take smaller bites and drink more water to allow the food to go down. Denies n/v, headache, fevers, cough, denies lifting anything heavy, chest trauma recently, recent exercise. Has been in [facility] inpatient rehab for past 33 days for heroin and alcohol use. ER course was notable for: (1) EKG (2) trop .23 (3) started on heprin drip, given ASA and plavix Recent Travel: none PAST MEDICAL HISTORY: HTN PAST SURGICAL HISTORY: CABG Feb 2017 at [facility] cholecystectomy 3 yrs ago at [facility] pancreatic mass removal 2 yrs at [facility] Social History: Smoking: started age 16, was 1pk/day but now he is 1/2pk per day Alcohol: etoh abuse, last drink prior to entering rehab 33days ago Drugs: heroin(smoked) and etoh abuse, denies IVDU Family History: mother from ovarian cancer age 60's Allergies No Known Allergies Allergy (Verified 06/20/17 03:03) HOME MEDICATIONS: Home Medications Medication Instructions Recorded Methadone [Dolophine -] 80 mg PO DAILY 05/23/17 Lisinopril [Prinivil] 10 mg PO DAILY #30 tablet 06/19/17 traZODone HCL [Desyrel -] 100 mg PO HS #30 tablet 06/19/17 REVIEW OF SYSTEMS CONSTITUTIONAL: Present: weight change: gained since being in rehab Absent: fever, chills, diaphoresis, generalized weakness, malaise, loss of appetite, HEENT: Present: intermittent difficulty swallowing Absent: rhinorrhea, nasal congestion, throat pain, throat swelling, , mouth swelling, ear pain, eye pain, visual changes CARDIOVASCULAR: Presents:chest pain, Absent: syncope, palpitations, irregular heart rate, lightheadedness, peripheral edema RESPIRATORY: Absent: cough, shortness of breath, dyspnea with exertion, orthopnea, wheezing GASTROINTESTINAL: Absent: abdominal pain, abdominal distension, nausea, vomiting, diarrhea, constipation, GENITOURINARY: Absent: dysuria, frequency, urgency, hesitancy, hematuria, flank pain, MUSCULOSKELETAL: Absent: myalgia, arthralgia, joint swelling, back pain, neck pain SKIN: Absent: rash, itching, pallor HEMATOLOGIC/IMMUNOLOGIC: Absent: easy bleeding, easy bruising, lymphadenopathy, frequent infections ENDOCRINE: Absent: unexplained weight gain, unexplained weight loss, heat intolerance, cold intolerance NEUROLOGIC: Absent: headache, focal weakness or paresthesias, dizziness, unsteady gait, seizure PHYSICAL EXAMINATION Vital Signs - 24 hr 06/20/17 06/20/17 06/20/17 02:59 03:03 05:14 Temperature 97.5 F L Pulse Rate 61 67 Pulse Rate [ 74 Apical] Respiratory 16 18 Rate Blood Pressure 145/95 Blood Pressure 97/76 [Right Arm] O2 Sat by Pulse 98 99 99 Oximetry (%) 06/20/17 06/20/17 05:17 06:08 Temperature Pulse Rate 67 Pulse Rate [ 66 Apical] Respiratory 12 Rate Blood Pressure Blood Pressure 91/65 [Right Arm] O2 Sat by Pulse 99 100 Oximetry (%) GENERAL: Awake, alert, and fully oriented, in no acute distress. HEAD: Normal with no signs of trauma. EYES: Pupils equal, round and reactive to light, extraocular movements intact, sclera anicteric, conjunctiva clear. No lid lag. EARS, NOSE, THROAT: oropharynx clear without exudates. Moist mucous membranes. no thyromegaly NECK: Normal range of motion, supple without lymphadenopathy, JVD, or masses. LUNGS: Breath sounds equal, clear to auscultation bilaterally. No wheezes, and no crackles. No accessory muscle use. CHEST: TTP pain anterior chest from right to left across sternum and from collar bone to epigastrium, TTP in posterior thoracic chest. no paraspinal tenderness, no spinal tenderness, no tenderness on lateral sides of chest. chest pain when lifting arms. well healed sternal scar HEART: Regular rate and rhythm, normal S1 and S2 without murmur, rub or gallop. ABDOMEN: Soft, nontender, not distended, normoactive bowel sounds, no guarding, no rebound, no masses. well healed periumbical lateral scar. MUSCULOSKELETAL: No bony deformities or tenderness. No CVA tenderness. UPPER EXTREMITIES: 2+ radial pulses, warm, well-perfused. No cyanosis. No clubbing. No peripheral edema. LOWER EXTREMITIES: 2+ DP pulses, warm, well-perfused. No calf tenderness. No peripheral edema. NEUROLOGICAL: Cranial nerves II-XII intact. Normal speech. 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 PSYCHIATRIC: Cooperative. Good eye contact. Appropriate mood and affect. SKIN: Warm, dry, normal turgor, no rashes or lesions noted, normal capillary refill. Laboratory Results - last 24 hr 06/20/17 06/20/17 06/20/17 03:26 03:26 03:26 WBC 5.8 D RBC 3.96 L Hgb 12.2 Hct 35.4 MCV 89.3 MCH 30.8 MCHC 34.5 RDW 14.9 Plt Count 157 D MPV 8.8 Neutrophils % 57.4 D Lymphocytes % 22.0 D Monocytes % 11.4 H Eosinophils % 8.6 H D Basophils % 0.6 PT with INR 11.10 INR 0.98 Sodium 137 Potassium 4.2 Chloride 103 Carbon Dioxide 30 Anion Gap 4 L BUN 19 H Creatinine 0.9 Creat Clearance w eGFR > 60 Random Glucose 108 H Calcium 8.5 Magnesium 2.3 Total Bilirubin 0.2 D AST 14 L ALT 25 Alkaline Phosphatase 82 D Creatine Kinase 60 Troponin I 0.23 H D Total Protein 6.9 Albumin 3.4 Lipase 49 L ASSESSMENT/PLAN: 61 yr old with recent CABG presents with chest pain found to have elevated troponin admitted for NSTEMI. #NSTEMI - high concern in pt with recent CABG to have nstemi with EKG changes ( in comparison to previous in May 2017) and elevated trop - started in heparin gtt - full dose ASA and plavix givn in ED, continue 81mg and 75mg daily tomorrow - BP currently low, will give IV hydration and when improved pt should receive ACEi and BB - echo in May wnl, will repeat now due to presenting signs/symptoms - r/o DM with A1C - morphine for pain - supplemental oxygen - cardiac monitoring on tele - Dr. Khan consulted from cardiology, may need stress test/cardiac helene intervention - trend trops #Methadone dependence - 80mg po daily #HTN - currently hypotensive - Hydrate with gentle fluids NS @83cc/hr - hold ACEi until pressure improves #Smoking cessation, counseling offered. was on 14mg at [facility], will defer for now until pt requests. #DVT on heprin drip #Diet: low fat/cholesterol Visit type - Emergency Visit Emergency Visit: Yes ED Registration Date: 06/20/17 Care time: The patient presented to the Emergency Department on the above date and was hospitalized for further evaluation of their emergent condition. - New Patient This patient is new to me today: Yes Date on this admission: 06/20/17 - Critical Care Critical Care patient: No Hospitalist Screening - Colonoscopy Questionnaire Colonoscopy Questionnaire: Colonoscopy Questionnaire - Patient: 50 - 75 years old and never had a screening colonoscopy: Unknown History of colon or rectal polyps, or CA: Unknown History of IBD, Crohn's disease or UC: Unknown History of abdominal radiation therapy as a child: Unknown - Relative: 1 with colon or rectal CA, or polyps at age 60 or younger: Unknown Colon or rectal CA diagnosed at age 45 or younger: Unknown Multiple relatives with colon or rectal CA: Unknown - Outcome: Screening Result: Negative Screen
[2017-06-20] MEDS: HEPARIN - 25,000 UNIT in SODIUM CHLORIDE 495 ML IV SCH ×2 (06:29→14:22)
--- NOTE | 2017-06-20 06:43 | PN ---
Teaching Attending Note Name of Resident: Kate Alcantara ATTENDING PHYSICIAN STATEMENT I saw and evaluated the patient. Chart, data, imaging reviewed I reviewed the resident's note and discussed the case with the resident. I agree with the resident's findings and plan as documented. SUBJECTIVE: 61 year old male with a significant PMH of CAD (s/p triple bypass), HTN, current smoker, alcohol abuse presented via EMS from [facility] with chest pain that awoke him from sleep prior to arrival. Pain was substernal, pressure-like, with radiation to shoulder b/l, associated with some shortness of breath. Some pain relief with nitroglycerin. OBJECTIVE: Last Vital Signs Temp Pulse Resp BP Pulse Ox 97.5 F L 66 12 91/65 100 06/20/17 02:59 06/20/17 06:08 06/20/17 06:08 06/20/17 06:08 06/20/17 06:08 general -nad, resting comfortably heent - at, nc neck -supple cv- s1+s2+rrr chest- cta b/l, anterior chest vertical scar abdomen- soft, nt ext- no edema Abnormal Lab Results 06/20/17 06/20/17 03:26 03:26 RBC 3.96 L Monocytes % 11.4 H Eosinophils % 8.6 H D Anion Gap 4 L BUN 19 H Random Glucose 108 H AST 14 L Troponin I 0.23 H D Lipase 49 L ekg - nonspecific t wave changes, nsr ASSESSMENT AND PLAN: #61yo man with anginal chest pain, and troponin elevation from baseline. Suggestive of NSTEMI. Borderline hypotension so will temporarily hold off bblocker and acei until BP improves. Recent normal Transthoracic echo in 05/28. -admit to telemetry -heparin drip -ASA 325mg po -clopidogrel 300mg po -cardiology consult -nitroglycerin sublingual prn if angina -morphine prn if pain -gentle IVF hydration -bblocker and ACEi once BP improves -zofran IV prn if nausea or vomiting -repeat transthoracic echo dvt ppx - heparin drip
[2017-06-20 08:08] LABS: CHOLESTEROL 178 mg/dL (50-200)
[2017-06-20 08:11] LABS: HDL CHOLESTEROL 37 mg/dL (40-60); TRIGLYCERIDES 293 mg/dL (35-160)
--- NOTE | 2017-06-20 09:31 | EKG ---
Test Reason : Blood Pressure : / mmHG Vent. Rate : 061 BPM Atrial Rate : 061 BPM P-R Int : 204 ms QRS Dur : 094 ms QT Int : 428 ms P-R-T Axes : 055 -13 102 degrees QTc Int : 430 ms SINUS RHYTHM WITH MARKED SINUS ARRHYTHMIA ABNORMAL ECG WHEN COMPARED WITH ECG OF 22-MAY-2017 12:03, T WAVE INVERSION NO LONGER EVIDENT IN INFERIOR LEADS Confirmed by ESTEFANIA WANG MD ([id number]) on 06/20/2017 9:31:11 AM Referred By: Confirmed By:ESTEFANIA WANG MD
[2017-06-20] MEDS ORDERED: CLOPIDOGREL BISULFATE 75 MG TABLET (FP) ONE (09:37)
[2017-06-20] MEDS ORDERED: ASPIRIN 81 MG CHEWABLE TABLETS ONE (09:37)
--- NOTE | 2017-06-20 09:46 | EKG ---
Test Reason : Blood Pressure : / mmHG Vent. Rate : 052 BPM Atrial Rate : 052 BPM P-R Int : 182 ms QRS Dur : 086 ms QT Int : 480 ms P-R-T Axes : 037 002 225 degrees QTc Int : 446 ms SINUS BRADYCARDIA ABNORMAL ECG WHEN COMPARED WITH ECG OF 20-JUN-2017 02:55, NONSPECIFIC T WAVE ABNORMALITY, WORSE IN INFERIOR LEADS Confirmed by ESTEFANIA WANG MD ([id number]) on 06/20/2017 9:45:30 AM Referred By: Confirmed By:ESTEFANIA WANG MD
[2017-06-20] MEDS ORDERED: LISINOPRIL 10 MG TABLET (FP) PO SCH (10:00)
[2017-06-20] MEDS ORDERED: CLOPIDOGREL BISULFATE 75 MG TABLET (FP) PO SCH ×2 (10:00→11:35)
[2017-06-20] MEDS ORDERED: ACETAMINOPHEN 325 MG TABLET (FP) PO PRN (10:40)
[2017-06-20] MEDS ORDERED: ASPIRIN 81 MG CHEWABLE TABLETS PO SCH (11:35)
[2017-06-20 12:31] VITALS: BP 124/60; PULSE 60; TEMP 98
--- NOTE | 2017-06-20 13:26 | CON.CARD ---
Cardiology Consult (text) - Consultation Consultation Note: cc: cp hpi: 61 m hx cad s/p cabg few mos ago at the [facility] (no mi, for cp per pt, not following with cardio), hld, etoh abuse, on methadone, sent from detox with cp. CP is soreness in central chest, worse with palpation of chest wall. Worse with deep breaths. Feels similar to his cp prior to cabg. No sob, palps, dizzy , loc, pnd, orthopnea, le edema. pmh: per hpi psh: cabg social: etoh abuse fam: nc ros: per hpi; no gib, hematuria, dysuria, lovett, vision changes meds: Home Medications Medication Instructions Recorded Methadone [Dolophine -] 80 mg PO DAILY 05/23/17 Lisinopril [Prinivil] 10 mg PO DAILY #30 tablet 06/19/17 traZODone HCL [Desyrel -] 100 mg PO HS #30 tablet 06/19/17 pe: Vital Signs Period Temp Pulse Resp BP Sys/Cooper Pulse Ox Last 24 Hr 97.5 F-98 F 55-74 12-19 91-145/59-95 97-100 nad no jvd rrr s1s2 no mrg cta bl nl eff aaox3 no le e/c/c abd nt nd pos bs no jaundice diaphroesis pos dp pt no carotid bruits +chest wall tenderness Laboratory Last Values WBC 5.8 K/mm3 (4.0-10.0) D 06/20/17 03:26 RBC 3.96 M/mm3 (4.00-5.60) L 06/20/17 03:26 Hgb 12.2 GM/dL (11.7-16.9) 06/20/17 03:26 Hct 35.4 % (35.4-49) 06/20/17 03:26 MCV 89.3 fl (80-96) 06/20/17 03:26 MCH 30.8 pg (25.7-33.7) 06/20/17 03:26 MCHC 34.5 g/dl (32.0-35.9) 06/20/17 03:26 RDW 14.9 % (11.9-15.9) 06/20/17 03:26 Plt Count 157 K/MM3 (134-434) D 06/20/17 03:26 MPV 8.8 fl (7.5-11.1) 06/20/17 03:26 Neutrophils % 57.4 % (42.8-82.8) D 06/20/17 03:26 Lymphocytes % 22.0 % (8-40) D 06/20/17 03:26 Monocytes % 11.4 % (3.8-10.2) H 06/20/17 03:26 Eosinophils % 8.6 % (0-4.5) H D 06/20/17 03:26 Basophils % 0.6 % (0-2.0) 06/20/17 03:26 PT with INR 11.10 SEC (9.7-13.0) 06/20/17 03:26 INR 0.98 (0.82-1.09) 06/20/17 03:26 Sodium 137 mmol/L (136-145) 06/20/17 03:26 Potassium 4.2 mmol/L (3.5-5.1) 06/20/17 03:26 Chloride 103 mmol/L (98-107) 06/20/17 03:26 Carbon Dioxide 30 mmol/L (21-32) 06/20/17 03:26 Anion Gap 4 (8-16) L 06/20/17 03:26 BUN 19 mg/dL (7-18) H 06/20/17 03:26 Creatinine 0.9 mg/dL (0.7-1.3) 06/20/17 03:26 Creat Clearance w eGFR > 60 (>60) 06/20/17 03:26 Random Glucose 108 mg/dL (74-106) H 06/20/17 03:26 Hemoglobin A1c % 6.0 % (4.8-6.0) 06/20/17 06:20 Calcium 8.5 mg/dL (8.5-10.1) 06/20/17 03:26 Magnesium 2.3 mg/dL (1.8-2.4) 06/20/17 03:26 Total Bilirubin 0.2 mg/dL (0.2-1.0) D 06/20/17 03:26 AST 14 U/L (15-37) L 06/20/17 03:26 ALT 25 U/L (12-78) 06/20/17 03:26 Alkaline Phosphatase 82 U/L (45-117) D 06/20/17 03:26 Creatine Kinase 60 IU/L (39-308) 06/20/17 03:26 Troponin I 1.38 ng/ml (0.00-0.05) H* D 06/20/17 10:20 Total Protein 6.9 g/dl (6.4-8.2) 06/20/17 03:26 Albumin 3.4 g/dl (3.4-5.0) 06/20/17 03:26 Triglycerides 293 mg/dL (35-160) H 06/20/17 03:26 Cholesterol 178 mg/dL (50-200) 06/20/17 03:26 Total LDL Cholesterol 108 mg/dL (5-100) H 06/20/17 03:26 HDL Cholesterol 37 mg/dL (40-60) L 06/20/17 03:26 Lipase 49 U/L (73-393) L 06/20/17 03:26 cxr: no chf ecg: sr, nl intervals, lat twis, no st changes. compared to prior ecg twis are more prominent now. a/p: 61 m hx cad s/p cabg 2 mos ago (no mi, for cp per pt, not following with cardio), hld, etoh abuse, on methadone, sent from detox with cp. nstemi, cp: -cp similar to sxs that led to cabg -trop rise pattern c/w nstemi -ecg with deeper twis -echo 05/2017 unremarkable, repeat pending -cont nstemi tx with dapt, hep gtt. -cont statin, sharron. no bb 2/2 bradycardia -d/w interventionalist, plan for cath today at [facility] -cont tele cad: -as above -s/p recent cabg. cont asa, statin -nl lvef hld: -cont statin
--- NOTE | 2017-06-20 14:00 | DS ---
Physical Exam: SUBJECTIVE: Patient seen and examined at bedside. Pt complains of residual substernal chest pressure, which feels very much like his previous cardiac symptoms. Denies SOB, cough, n/v/d, diaphoresis. OBJECTIVE: Vital Signs Period Temp Pulse Resp BP Sys/Cooper Pulse Ox Last 24 Hr 97.5 F-98 F 55-74 12-19 91-145/59-95 97-100 PHYSICAL EXAM GENERAL: The patient is awake, alert, and fully oriented, in mild distress. HEAD: Normal with no signs of trauma. EYES: sclera anicteric, conjunctiva clear. ENT: oropharynx clear without exudates, moist mucous membranes. NECK: Trachea midline, full range of motion, supple. LUNGS: Breath sounds equal, clear to auscultation bilaterally, no wheezes, no crackles, no accessory muscle use. HEART: Regular rate and rhythm, S1, S2 without murmur, rub or gallop. Sternotomy scar. ABDOMEN: Soft, nontender, nondistended, normoactive bowel sounds, no guarding, no rebound, no hepatosplenomegaly, no masses. EXTREMITIES: 2+ pulses, warm, well-perfused, no edema. NEUROLOGICAL: Cranial nerves II through XII grossly intact. Normal speech, gait not observed. PSYCH: Normal mood, normal affect. SKIN: Warm, dry, normal turgor, no rashes or lesions noted. LABS Laboratory Results - last 24 hr 06/20/17 06/20/17 06/20/17 03:26 03:26 03:26 WBC 5.8 D RBC 3.96 L Hgb 12.2 Hct 35.4 MCV 89.3 MCH 30.8 MCHC 34.5 RDW 14.9 Plt Count 157 D MPV 8.8 Neutrophils % 57.4 D Lymphocytes % 22.0 D Monocytes % 11.4 H Eosinophils % 8.6 H D Basophils % 0.6 PT with INR 11.10 INR 0.98 Sodium 137 Potassium 4.2 Chloride 103 Carbon Dioxide 30 Anion Gap 4 L BUN 19 H Creatinine 0.9 Creat Clearance w eGFR > 60 Random Glucose 108 H Hemoglobin A1c % Calcium 8.5 Magnesium 2.3 Total Bilirubin 0.2 D AST 14 L ALT 25 Alkaline Phosphatase 82 D Creatine Kinase 60 Troponin I 0.23 H D Total Protein 6.9 Albumin 3.4 Triglycerides 293 H Cholesterol 178 Total LDL Cholesterol 108 H HDL Cholesterol 37 L Lipase 49 L 06/20/17 06/20/17 06:20 10:20 WBC RBC Hgb Hct MCV MCH MCHC RDW Plt Count MPV Neutrophils % Lymphocytes % Monocytes % Eosinophils % Basophils % PT with INR INR Sodium Potassium Chloride Carbon Dioxide Anion Gap BUN Creatinine Creat Clearance w eGFR Random Glucose Hemoglobin A1c % 6.0 Calcium Magnesium Total Bilirubin AST ALT Alkaline Phosphatase Creatine Kinase Troponin I 1.38 H* D Total Protein Albumin Triglycerides Cholesterol Total LDL Cholesterol HDL Cholesterol Lipase HOSPITAL COURSE: Date of Admission:06/20/17 Date of Discharge: 06/20/17 Pt is a 61 y/o M with PMH CABG in Feb 2017 (poor follow up. Has not been taking any cardiac meds) who presented to ED from [facility] with substernal chest pressure radiating to the back. In ED he was found to have an NSTEMI with deepening lateral T waves and positive Trop. He was given Aspirin, plavix, lipitor, and he was started on heparin drip. He had an echo done, which showed He was seen by cardiology and transferred to [facility]. The decision was made by his care team to transfer him to [facility] to the care of Dr. Sekou La. Pt is currently afebrile, normotensive, in no distress. He is stable for transfer. Minutes to complete discharge: 30 Discharge Summary Reason For Visit: CHEST PAIN/ELEVATED TROPONIN LEVEL Current Active Problems Chest pain (Acute) Elevated troponin (Acute) NSTEMI (non-ST elevated myocardial infarction) (Acute) Methadone maintenance therapy patient (Chronic) Condition: Unchanged/Unknown - Instructions Diet, Activity, Other Instructions: You are being transferred to [facility] under Dr. camacho tobias for cardiac catheterization and further testing. You are currently on Heparin protocol and medications per cardiology. Your home medications prior to admission at detox facility were: Methadone 80 mg daily Lisinopril 10 mg daily Trazodone 100 mg daily. Disposition: TRANSFER ACUTE CARE/OTHER HOSP - Home Medications Comprehensive Discharge Medication List: Ambulatory Orders Methadone [Dolophine -] 80 mg PO DAILY 05/23/17 Lisinopril [Prinivil] 10 mg PO DAILY #30 tablet 06/19/17 traZODone HCL [Desyrel -] 100 mg PO HS #30 tablet 06/19/17 Acetaminophen [Tylenol .Regular Strength -] 650 mg PO Q6H PRN tablet 06/20/17 Aspirin [ASA -] 81 mg PO DAILY tab.chew 06/20/17 Atorvastatin Ca [Lipitor] 80 mg PO HS tablet 06/20/17 Clopidogrel Bisulfate [Plavix -] 75 mg PO DAILY tablet 06/20/17 Heparin - 1,000 unit IVPUSH PRN PRN vial 06/20/17 Heparin - 5,000 unit IVPUSH PRN PRN vial 06/20/17 This patient is new to me today: No Emergency Visit: No Critical Care patient: No - Discharge Referral Referred to [facility] No
--- NOTE | 2017-06-20 17:31 | PN ---
Teaching Attending Note Name of Resident: Shalom Person ATTENDING PHYSICIAN STATEMENT I saw and evaluated the patient. I reviewed the resident's note and discussed the case with the resident. I agree with the resident's findings and plan as documented with exceptions below. SUBJECTIVE: Patient seen and examined. still with some chest pain, improved from before, substernal. WOrried about his belongings at [facility]. OBJECTIVE: Vital Signs Period Temp Pulse Resp BP Sys/Cooper Pulse Ox Last 24 Hr 97.5 F-98 F 55-74 12-19 91-145/59-95 97-100 Intake & Output 06/17/17 06/18/17 06/19/17 06/20/17 23:59 23:59 23:59 23:59 Weight 170 lb General: sittiing in bed, no acute distress Chest: CTAB, no rales or wheezing Abdomen: soft, NT Extremities: no edema Home Medication List Medication Instructions Recorded Confirmed Type Methadone [Dolophine -] 80 mg PO DAILY 05/23/17 06/20/17 History Allopurinol [Zyloprim -] 400 mg PO DAILY 06/20/17 06/20/17 History Metoprolol Tartrate 25 mg PO BID 06/20/17 06/20/17 History Nitroglycerin [Nitrostat] 0.4 mg SL [id number] PRN 06/20/17 06/20/17 History traZODone HCL [Desyrel -] 100 mg PO HS PRN 06/20/17 06/20/17 History Laboratory Results - last 24 hr 06/20/17 06/20/17 06/20/17 03:26 03:26 03:26 WBC 5.8 D RBC 3.96 L Hgb 12.2 Hct 35.4 MCV 89.3 MCH 30.8 MCHC 34.5 RDW 14.9 Plt Count 157 D MPV 8.8 Neutrophils % 57.4 D Lymphocytes % 22.0 D Monocytes % 11.4 H Eosinophils % 8.6 H D Basophils % 0.6 PT with INR 11.10 INR 0.98 PTT (Actin FS) Sodium 137 Potassium 4.2 Chloride 103 Carbon Dioxide 30 Anion Gap 4 L BUN 19 H Creatinine 0.9 Creat Clearance w eGFR > 60 Random Glucose 108 H Hemoglobin A1c % Calcium 8.5 Magnesium 2.3 Total Bilirubin 0.2 D AST 14 L ALT 25 Alkaline Phosphatase 82 D Creatine Kinase 60 Troponin I 0.23 H D Total Protein 6.9 Albumin 3.4 Triglycerides 293 H Cholesterol 178 Total LDL Cholesterol 108 H HDL Cholesterol 37 L Lipase 49 L 06/20/17 06/20/17 06/20/17 06:20 10:20 13:41 WBC RBC Hgb Hct MCV MCH MCHC RDW Plt Count MPV Neutrophils % Lymphocytes % Monocytes % Eosinophils % Basophils % PT with INR INR PTT (Actin FS) 33.1 Sodium Potassium Chloride Carbon Dioxide Anion Gap BUN Creatinine Creat Clearance w eGFR Random Glucose Hemoglobin A1c % 6.0 Calcium Magnesium Total Bilirubin AST ALT Alkaline Phosphatase Creatine Kinase Troponin I 1.38 H* D Total Protein Albumin Triglycerides Cholesterol Total LDL Cholesterol HDL Cholesterol Lipase EKGs from admission and this AM reviewed. ASSESSMENT AND PLAN: 61 yom with CABG in 02/2017, polysubstance use, sent from [facility] detox with chest pain, found with NSTEMI -NSTEMI -CAD s/p CABG -Polysubstance abuse on detox Plan: Cardiology input noted, D/c to [facility] for cardiac cath. Continue ASA/plavix/heparin drip/Statin/ metoprolol, ACEi as tolerated. Plan discussed with patient.
[2017-06-20] MEDS ORDERED: ATORVASTATIN CA 80 MG TABLET (FP) PO SCH (22:00)
[2017-06-21] MEDS ORDERED: ASPIRIN 81 MG CHEWABLE TABLETS PO SCH (10:00)
[2017-06-21] MEDS ORDERED: CLOPIDOGREL BISULFATE 75 MG TABLET (FP) PO SCH (10:00)
== END 2017-06-20 15:50 | disposition short-term general hospital (02) | DRG 281 ==
LOC: JER 02:48 → JERBED 05:16 → UNDOADMIN 06:54 → JERBED 06:54 → J4W 11:54
PROVIDERS: ADMIT Internal Medicine; ATTEND Hospitalist
DX: I21.4 Non-ST elevation (NSTEMI) myocardial infarction (principal); F11.20 Opioid dependence, uncomplicated; I10 Essential (primary) hypertension; I25.10 Atherosclerotic heart disease of native coronary artery without angina pectoris; Z95.1 Presence of aortocoronary bypass graft; F12.10 Cannabis abuse, uncomplicated; F17.210 Nicotine dependence, cigarettes, uncomplicated; F10.10 Alcohol abuse, uncomplicated
CPT/HCPCS: 36415; 71045-TC-FY; 80053; 80061; 82550; 83036; 83690; 83721; 83735; 84484; 85025; 85610; 85730; 93005; 93010; 93306-TC; 99285-25; J1644; J7030